=== PATIENT | female | born 1945 | race Caucasian/White ===

== ENCOUNTER 2021-02-03 13:30 | Outpatient (REF) | payer MEDICARE, SELFPAY ==
--- NOTE | ~2021-02-03 | XR_ITS ---
EXAMINATION: XR FOOT, LEFT CLINICAL INFORMATION: L03.90 - Cellulitis, unspecified COMPARISON: None TECHNIQUE: AP, lateral, and oblique views of the left foot. FINDINGS: There is mild generalized osteopenia. There is no focal bony destructive process or periostitis. No gas tracking in soft tissue planes. There is no visible acute or healing fracture or dislocation. No erosive arthropathy. There are bulky posterior and plantar calcaneal spurs. There is mild hallux valgus first MTP with medial bunion. XR/XR foot LT min 3V IMPRESSION: 1. No focal bony destructive process or periostitis. 2. No gas tracking in soft tissue planes.
== END 2021-02-03 13:31 | disposition home or self-care (01) ==
LOC: HO.HMGCX 13:30
PROVIDERS: PCP Internal Medicine; Visit Provider Nurse Practitioner Family
DX: L03.90 Cellulitis, unspecified (principal); M79.89 Other specified soft tissue disorders
CPT/HCPCS: 73630

== ENCOUNTER 2024-10-07 17:13 | Emergency (ER) | payer OTHER, SELFPAY ==
--- NOTE | 2024-10-07 | ECG_ITS ---
Test Reason : chest pain Blood Pressure : */* mmHG Vent. Rate : 64 BPM Atrial Rate : 64 BPM P-R Int : 166 ms QRS Dur : 122 ms QT Int : 476 ms P-R-T Axes : 44 -28 8 degrees QTcB Int : 491 ms Sinus rhythm with Premature atrial complexes Right bundle branch block T wave abnormality, consider lateral ischemia Abnormal ECG No previous ECGs available Referred By: Generic ED Physician Electronically Signed By: COCO AGUILERA
--- NOTE | ~2024-10-07 | US_ITS ---
CLINICAL HISTORY: RUQ pain, GB, CBD US abdomen limited Comparison: None Findings: The liver is normal in size and echotexture. There is no intrahepatic bile duct dilatation. The common duct is 2 mm in diameter. The gallbladder is normal. There is no sonographic Fulton sign. The main portal vein is antegrade. IMPRESSION: Unremarkable limited abdominal ultrasound. This document has been electronically signed by: Koko Ramirez MD on 10/07/2024 19:18:53
[2024-10-07 17:28] VITALS: BP 128/69; BP 143/77; PULSE 63; PULSE 67; RESP 14; TEMP 36.3; O2SAT 98; BMI 27.6
[2024-10-07] MEDS: 0.9 % Sodium Chloride 1,000 ML 999 ML IV (18:03)
[2024-10-07] MEDS: ondansetron HCL 4 MG/2 ML VIAL IVPUSH (18:04)
[2024-10-07] MEDS: Morphine Sulfate 4 MG/ML CARTRIDGE IVPUSH ×2 (18:04→18:39)
[2024-10-07 18:18] LABS: MANUAL DIFF FLAG NO
[2024-10-07 18:25] LABS: Basophils Percent Auto 0.4 % (0-2); Eosinophils Percent Auto 0.6 % (0-4); Hematocrit 38.4 % (37.0-47.0); Hemoglobin 13.4 g/dl (12.0-16.0); Imm Gran Abs Auto 0.04 X10*3/uL (0.00-0.03); Imm Gran Pct Auto 0.7 % (0.0-0.4); Lymphocytes Absolute Auto 2.3 X10*3/uL (1.2-4.9); Lymphocytes Percent Auto 43.8 % (20-40); Mean Corpuscular HGB Conc 34.9 g/dl (31.0-35.0); Mean Corpuscular Volume 86.1 fL (80.0-98.0); Mean Platelet Volume 9.4 fL (9.4-12.3); Monocytes Absolute Auto 0.4 X10*3/uL (0.1-1.2); Monocytes Percent Auto 7.7 % (2-11); Neutrophils Absolute Auto 2.5 x10*3/uL (2.0-8.3); Neutrophils Percent Auto 46.8 % (45-73); Platelet Count 241 X10*3/uL (160-400); Red Blood Count 4.46 X10*6/uL (4.20-5.50); Red Cell Distribution Width 13.5 % (11.0-16.0); White Blood Count 5.3 X10*3/uL (4.8-10.8)
[2024-10-07 18:37] LABS: Alanine Aminotransferase 13 U/L (0-31); Albumin Level 4.1 g/dL (3.5-5.0); Alkaline Phosphatase 55 U/L (39-117); Anion Gap 14 (12-20); Aspartate Amino Transferase 31 U/L (5-31); Bilirubin Total 0.8 mg/dL (0.0-1.0); Blood Urea Nitrogen 17 mg/dL (9-16); Calcium 9.1 mg/dL (8.4-10.2); Carbon Dioxide 27 mmol/L (22-29); Chloride 104 mmol/L (96-108); Creatinine Clr Calc Pharmacy 39.3; Estimated Glomerular Filt Rate 50; Glucose Random 104 mg/dL (60-115); Lipase 32 U/L (8-78); Magnesium 1.8 mg/dL (1.6-2.6); Potassium 3.5 mmol/L (3.3-5.1); Sodium 141 mmol/L (135-145); Total Protein 7.5 g/dL (6.5-8.0)
--- NOTE | 2024-10-07 18:40 | ED.ABDPAIN ---
HPI - Abdominal Pain General Chief Complaint: Abdominal Pain Stated Complaint: epigastric pain, nausea since Time Seen by Provider: 10/07/24 17:39 Source: patient Limitations: no limitations History of Present Illness ED Provider: Latricia Ceron PA-C HPI narrative: 79-year-old female presents with the abdominal pain x4 days. Pain over epigastric and right upper quadrant, unable to describe the nature of her discomfort, but states it is nonradiating. Pain worse after eating. Associated nausea/ vomiting. Denies fever, chest pain, cough cold symptoms or shortness of breath. Patient was seen at urgent Care, they obtained an EKG that was concerning, they sent her here for further assessment. Related Data Home Medications ?Medication ?Instructions ?Recorded ?Confirmed acetaminophen 325 mg tablet 650 mg PO Q6H PRN pain 02/03/21 atenolol 50 mg tablet 50 mg PO DAILY 02/03/21 cetirizine 10 mg capsule (Zyrtec) 10 mg PO DAILY PRN 02/03/21 chlorthalidone 25 mg tablet 25 mg PO DAILY 02/03/21 triamcinolone acetonide 0.1 % topical BEDTIME 02/03/21 topical ointment Previous Rx's ?Medication ?Instructions ?Recorded cephalexin 500 mg capsule 500 mg PO QID 7 days #28 caps 02/03/21 doxycycline monohydrate 100 mg 100 mg PO BID 7 days #14 caps 02/03/21 capsule ketoconazole 2 % topical cream 1 appl topical BID 4 weeks #60 02/03/21 grams ondansetron HCl 4 mg tablet 4 mg PO Q8H PRN nausea and 10/07/24 vomiting #10 tabs sucralfate 100 mg/mL oral 10 ml PO QID PRN indigestion #200 10/07/24 suspension (Carafate) mL Allergies Allergy/AdvReac Type Severity Reaction Status Date / Time No Known Allergies Allergy Verified 10/07/24 17:32 Review of Systems Review of Systems Yes all other systems are reviewed and are negative Constitutional: Denies fatigue and Denies fever(s) Cardiovascular: Denies chest pain and Denies dyspnea Respiratory: Denies cough and Denies dyspnea Gastrointestinal: Reports abdominal pain, Denies diarrhea, Reports nausea and Reports vomiting Endocrine: Denies fatigue PMFSH Past Medical History Attestation statement: The following information was validated with the patient. Social History Social History Smoked in Last 30 Days: No Advance Directives: No Advance Directives Information Provided: No Do you have a plan to hurt others: No Plan Physical Exam ED Vital Signs: Vital Signs - 24 hr 10/07/24 17:28 10/07/24 18:45 Temperature 97.3 F 97.3 F Pulse Rate 63 63 Respiratory Rate 14 14 Blood Pressure 128/69 128/69 Pulse Oximetry 98 98 Oxygen Delivery Method Room Air Room Air BMI result Body Mass Index 27.6 Const Other: Alert Orientation/consciousness: patient oriented x3 Resp Effort & Inspection: normal respiratory effort Cardio Other: Normal peripheral perfusion GI Other: Abdomen is soft, nondistended, mild to moderate tenderness epigastric and right upper quadrant without guarding Skin Other: Warm dry no rash Neuro General: patient oriented x3, gait normal, no focal motor deficits and CN's II-XI intact bilaterally Psych Other: Cooperative Medical Decision Making Medical Decision Making MDM Narrative: 79-year-old female presents with the abdominal pain x4 days. Pain over epigastric and right upper quadrant, unable to describe the nature of her discomfort, but states it is nonradiating. Pain worse after eating. Associated nausea/ vomiting. Denies fever, chest pain, cough cold symptoms or shortness of breath. Patient was seen at urgent Care, they obtained an EKG that was concerning, they sent her here for further assessment. Problem age History: Per patient I have considered the following differential diagnoses: Biliary colic, cholecystitis, gastritis, pancreatitis, atypical presentation for ACS Plan: Patient has no known risk factors for coronary artery disease, per our EKG, there are no acute changes, however urgent Care did not have prior studies to compare to. Along with a her screening labs, a troponin was ordered. Given distribution of discomfort I am considering biliary versus gastric versus pancreatic etiology as cause for her symptoms. Given postprandial symptoms, most likely biliary versus gastric. We will be obtaining an ultrasound of right upper quadrant, giving fluid, Zofran and morphine for her discomfort. I have independently reviewed the following tests: Labs: No leukocytosis, not anemic, no electrolyte abnormality noted, troponin 3.7, LFTs normal EKG: Sinus rhythm rate of 64, PACs noted, right bundle branch block again noted, T-wave abnormalities lateral leads are not new, QTC 491 Ultrasound right upper quadrant:Findings: The liver is normal in size and echotexture. There is no intrahepatic bile duct dilatation. The common duct is 2 mm in diameter. The gallbladder is normal. There is no sonographic Fulton sign. The main portal vein is antegrade. IMPRESSION: Unremarkable limited abdominal ultrasound. Lab Data 10/07/24 18:10 10/07/24 18:10 Labs: Lab Results 10/07/24 Range/Units 18:10 WBC 5.3 (4.8-10.8) X10*3/uL RBC 4.46 (4.20-5.50) X10*6/uL Hgb 13.4 (12.0-16.0) g/dl Hct 38.4 (37.0-47.0) % MCV 86.1 (80.0-98.0) fL MCH 30.0 (27.0-33.0) pg MCHC 34.9 (31.0-35.0) g/dl RDW 13.5 (11.0-16.0) % Plt Count 241 (160-400) X10*3/uL MPV 9.4 (9.4-12.3) fL Immature Gran % (Auto) 0.7 H (0.0-0.4) % Neut % (Auto) 46.8 (45-73) % Lymph % (Auto) 43.8 H (20-40) % [place] % (Auto) 7.7 (2-11) % Eos % (Auto) 0.6 (0-4) % Baso % (Auto) 0.4 (0-2) % Lymph # (Auto) 2.3 (1.2-4.9) X10*3/uL [place] # (Auto) 0.4 (0.1-1.2) X10*3/uL Eos # (Auto) 0.0 (0.0-0.4) X10*3/uL Baso # (Auto) 0.0 (0.0-0.2) X10*3/uL Abs Immat Gran (auto) 0.04 H (0.00-0.03) X10*3/uL Absolute Neuts (auto) 2.5 (2.0-8.3) x10*3/uL Absolute Nucleated RBC 0.000 (0.0-0.012) X10*3/uL Nucleated RBC % (auto) 0.0 (0.0-0.2) /100WBC Sodium 141 (135-145) mmol/L Potassium 3.5 (3.3-5.1) mmol/L Chloride 104 (96-108) mmol/L Carbon Dioxide 27 (22-29) mmol/L Anion Gap 14 (12-20) BUN 17 H (9-16) mg/dL Creatinine 1.07 (0.5-1.4) mg/dL Estim Creat Clear Calc 39.3 Estimated GFR 50 Random Glucose 104 (60-115) mg/dL Calcium 9.1 (8.4-10.2) mg/dL Magnesium 1.8 (1.6-2.6) mg/dL Total Bilirubin 0.8 (0.0-1.0) mg/dL AST 31 (5-31) U/L ALT 13 (0-31) U/L Alkaline Phosphatase 55 (39-117) U/L Troponin I High Sens 3.7 (<3.5-17.0) ng/L Total Protein 7.5 (6.5-8.0) g/dL Albumin 4.1 (3.5-5.0) g/dL Lipase 32 (8-78) U/L Medications Administered Discontinued Medications Generic Name Dose Route Start Last Admin Trade Name Freq PRN Reason Stop Dose Admin Sodium Chloride 1,000 mls @ 999 mls/hr 10/07/24 18:00 10/07/24 18:03 Ns IV 10/07/24 19:00 999 mls/hr .Q1H1M RAKAN Administration Morphine Sulfate 4 mg 10/07/24 17:51 10/07/24 18:04 Morphine Sulfate 4 Mg/Ml Cartridge IVPUSH 10/07/24 17:52 4 mg ONCE ONE Administration Protocol Morphine Sulfate 4 mg 10/07/24 18:27 10/07/24 18:39 Morphine Sulfate 4 Mg/Ml Cartridge IVPUSH 10/07/24 18:28 4 mg ONCE ONE Administration Protocol Ondansetron HCl 4 mg 10/07/24 17:51 10/07/24 18:04 Ondansetron Hcl 4 Mg/2 Ml Vial IVPUSH 10/07/24 17:52 4 mg ONCE ONE Administration Discharge Plan Discharge Clinical Impression: Gastritis Patient Disposition: Home, Self-Care Instructions: Gastritis (ED), Diet for Stomach Ulcers and Gastritis (ED), Gastroesophageal Reflux Disease (ED) Additional Instructions: All of your screening labs and the ultrasound of your abdomen were normal. Your symptoms are likely due to viral gastritis and/or poorly controlled acid reflux. See home care instructions. Some common food triggers, that could be worsening your symptoms, are spicy food, acidic food, greasy/ fatty food, mint, anything carbonated, alcohol. Eating smaller meals throughout the day can also help deter symptoms. Do not eat 3 hours before bed. Uses Zofran as needed for nausea. Use the Carafate as needed for upper abdominal discomfort, this medication helps to coat your stomach. Follow up with your primary care provider as needed. Prescriptions: New sucralfate [Carafate] 100 mg/mL suspension 10 ml PO QID PRN (Reason: indigestion) Qty: 200 0RF Rx Instructions: swish in mouth and swallow; use after food/drink ondansetron HCl 4 mg tablet 4 mg PO Q8H PRN (Reason: nausea and vomiting) Qty: 10 0RF No Action cephalexin 500 mg capsule 500 mg PO QID 7 Days Qty: 28 0RF doxycycline monohydrate 100 mg capsule 100 mg PO BID 7 Days Qty: 14 0RF ketoconazole 2 % cream 1 appl topical BID 28 Days Qty: 60 0RF Print Language: Citizen Of [place]
--- NOTE | 2024-10-07 18:43 | PC.NURSE ---
Pt medicated for pain and nausea; pt's pain initially went down from 10/10 to 4/10, but pain returned to 8/10 after upper abdominal U/S performed bedside; [employer] ATTENDANT made aware; pt medicated per orders; vss; family at bedside; nausea resolved, per pt
[2024-10-07 18:45] VITALS: BP 128/69; PULSE 63; RESP 14; TEMP 36.3; O2SAT 98
[2024-10-07 18:45] LABS: Troponin-I High Sensitivity 3.7 ng/L (<3.5-17.0)
--- OUTSIDE RECORDS SUMMARY | 2024-10-07 19:04 | XMS_ITS | Encounter Summary ---
Author Organization [facility] Address [address] [place] [address] Care Team Providers Care Business Services Specialist Sales Name Role Phone Bibiana Borges MD Primary Care Provider Unavail able Tiffany Zayas MD Primary Care Provider Alma Delia Segura MD Primary Care Prov ider Felecia Thompson MD Unavailable [phone] Jordy Valdez MD Unavailable Unavailab Finesse Smallwood PA-C Unavailable [phone] Javier Patel MD Unavailable [phone] Reason for Visit * Reason Onset Date Comments REFERRAL 07/18/2017 colonoscopy Encounter Details Date Type Department Care Team Description 07/18/2017 Telephone Gastroenterology - [address] [address] Osito Townsend MD REFERRAL (colonoscopy) Social History Tobacco Use Types Packs/Day Years Used Date Smoking Tobacco: Never Smokeless Tobacco: Never Alcohol Use Standard Drinks/Week Comments Yes 0 (1 standard drink = 0.6 oz pur e alcohol) occ Sex Assigned at Date Recorded Not on file Job Start Date Occupation Industry Not on file Not on file Not on file documented as of this encounter Miscellaneous Notes * Telephone Encounter - Helen Recio - 07/19/2017 10:19 AM EST Message left for patient to call us back to schedule colonoscopy. Patient is stateless speaking only. * Telephone Encounter - Osito Townsend MD - 07/18/2017 4:53 PM EST Chart reviewed, ok for colonoscopy here. * Telephone Encounter - Helen Recio - 07/18/2017 4:09 PM EST Please review problem list and let us know if we should proceed with booking colonoscopy. Thank you! documented in this encounter Plan of Treatment Not on file documented as of this encounter Visit Diagnoses Not on filedocumented in this encounter Care Teams Business Services Specialist Sales Relationship Specialty Start Date End Date Bibiana Borges MD PCP - General Internal Medicine 03/02/17 06/24/21 Tiffany Zayas MD [address] [place] [address] PCP - General Internal Medicine 06/25/21 03/27/22 Alma Delia Segura MD [address] [place] [address] PCP - General Internal Medicine 03/28/22 Felecia Thompson MD [address] [place] [address] Specialist Obstetrics/Gynecology 05/04/23 Jordy Valdez MD [address] [place] [address] Specialist Nephrology 05/04/23 Finesse Resendiz PA-Dulce [address] [place] [address] Specialist ORTHOPEDICS 05/04/23 Javier Patel MD [address] [place] [address] [place] [address] Specialist Cardiovascular Disease 07/11/23 documented as of this encounter
--- OUTSIDE RECORDS SUMMARY | 2024-10-07 19:04 | XMS_ITS | Encounter Summary ---
Author Organization [facility] Address [address] [place] [address] Care Team Providers Care Atomic Physics Teacher Name Role Phone Bibiana Borges MD Primary Care Provider Unavail able Tiffany Zayas MD Primary Care Provider Alma Delia Segura MD Primary Care Prov ider Felecia Thompson MD Unavailable [phone] Jordy Valdez MD Unavailable Unavailab Finesse Smallwood PA-C Unavailable [phone] Javier Patel MD Unavailable [phone] Encounter Details Date Type Department Care Team Description 10/08/2020 Orders Only Adult Medicine [address] [address] Zunilda Walker PA-C Social History Tobacco Use Types Packs/Day Years Used Date Smoking Tobacco: Never Smokeless Tobacco: Never Alcohol Use Standard Drinks/Week Comments Yes 0 (1 standard drink = 0.6 oz pur e alcohol) occ Sex Assigned at Date Recorded Not on file Job Start Date Occupation Industry Not on file Not on file Not on file COVID-19 Exposure Response Date Recorded In the last month, have you been in contact with someone who was confirmed or suspected to have Coronavirus / COVID-19? Unable to assess 10/08/2020 9:07 AM EST documented as of this encounter Plan of Treatment Not on file documented as of this encounter Visit Diagnoses Not on filedocumented in this encounter Care Teams Atomic Physics Teacher Relationship Specialty Start Date End Date Bibiana Borges MD PCP - General Internal Medicine 03/02/17 06/24/21 Tiffany Zayas MD [address] [place] [address] PCP - General Internal Medicine 06/25/21 03/27/22 Alma Delia Segura MD [address] [place] [address] PCP - General Internal Medicine 03/28/22 Felecia Thompson MD [address] [place] [address] Specialist Obstetrics/Gynecology 05/04/23 Jordy Valdez MD [address] [place] [address] Specialist Nephrology 05/04/23 Finesse Resendiz, PA-C [address] [place] [address] Specialist ORTHOPEDICS 05/04/23 Javier Patel MD [address] [place] [address] [place] [address] Specialist Cardiovascular Disease 07/11/23 documented as of this encounter
--- OUTSIDE RECORDS SUMMARY | 2024-10-07 19:05 | XMS_ITS | Encounter Summary ---
Author Organization [facility] Address [address] [place] [address] Care Team Providers Care Business Integration Manager Name Role Phone Bibiana Borges MD Primary Care Provider Unavail able Tiffany Zayas MD Primary Care Provider Alma Delia Segura MD Primary Care Prov ider Felecia Thompson MD Unavailable [phone] Jordy Valdez MD Unavailable Unavailab Finesse Smallwood PA-C Unavailable [phone] Javier Patel MD Unavailable [phone] Encounter Details Date Type Department Care Team Description 09/29/2017 Business Doc Medical Records [address] [place] [address] Abstract, Provider Social History Tobacco Use Types Packs/Day Years Used Date Smoking Tobacco: Never Smokeless Tobacco: Never Alcohol Use Standard Drinks/Week Comments No 0 (1 standard drink = 0.6 oz pur e alcohol) occ Sex Assigned at Date Recorded Not on file Job Start Date Occupation Industry Not on file Not on file Not on file documented as of this encounter Plan of Treatment Not on file documented as of this encounter Visit Diagnoses Not on filedocumented in this encounter Care Teams Business Integration Manager Relationship Specialty Start Date End Date Bibiana Borges MD PCP - General Internal Medicine 03/02/17 06/24/21 Tiffany Zayas MD [address] [place] [address] PCP - General Internal Medicine 06/25/21 03/27/22 Alma Delia Segura MD [address] [place] [address] PCP - General Internal Medicine 03/28/22 Felecia Thompson MD [address] [place] [address] Specialist Obstetrics/Gynecology 05/04/23 Jordy Valdez MD [address] [place] [address] Specialist Nephrology 05/04/23 Finesse Resendiz, PA-C [address] [place] [address] [id number] Specialist ORTHOPEDICS 05/04/23 Javier Patel MD [address] [place] [address] [place] [address] Specialist Cardiovascular Disease 07/11/23 documented as of this encounter
--- OUTSIDE RECORDS SUMMARY | 2024-10-07 19:05 | XMS_ITS | Encounter Summary ---
Author Organization [facility] Address [address] [place] [address] Care Team Providers Care National Opelint Analyst Name Role Phone Bibiana Borges MD Primary Care Provider Unavail able Tiffany Zayas MD Primary Care Provider [phone] Alma Delia Segura MD Primary Care Prov ider Felecia Thompson MD Unavailable [phone] Jordy Valdez MD Unavailable Unavailab Finesse Smallwood PA-C Unavailable [phone] Javier Patel MD Unavailable [phone] Encounter Details Date Type Department Care Team Description 05/13/2018 Hospital Medical Records [address] [place] [address] Abstract, Provider Social History Tobacco Use Types Packs/Day Years Used Date Smoking Tobacco: Never Smokeless Tobacco: Never Alcohol Use Standard Drinks/Week Comments Not Currently 0 (1 standard drink = 0.6 oz pur e alcohol) Sex Assigned at Date Recorded Not on file Job Start Date Occupation Industry Not on file Not on file Not on file documented as of this encounter Plan of Treatment Not on file documented as of this encounter Visit Diagnoses Not on filedocumented in this encounter Care Teams National Opelint Analyst Relationship Specialty Start Date End Date Bibiana Borges MD PCP - General Internal Medicine 03/02/17 06/24/21 Tiffany Zayas MD [address] [place] [address] PCP - General Internal Medicine 06/25/21 03/27/22 Alma Delia Segura MD [address] [place] [address] PCP - General Internal Medicine 03/28/22 Felecia Thompson MD [address] [place] [address] Specialist Obstetrics/Gynecology 05/04/23 Jordy Valdez MD [address] [place] [address] Specialist Nephrology 05/04/23 Finesse Resendiz, PA-C [address] [place] [address] Specialist ORTHOPEDICS 05/04/23 Javier Patel MD [address] [place] [address] [place] [address] Specialist Cardiovascular Disease 07/11/23 documented as of this encounter
--- OUTSIDE RECORDS SUMMARY | 2024-10-07 19:05 | XMS_ITS | Clinical Summary ---
Author Organization [facility], Address [address] [place] [address] [place] [address] Phone Care Team Providers Care Pump Installation And Servicer Name Role Phone Bibiana Stover MD Primary Care Provider [phone] Allergies Active Allergy Reactions Criticality Noted Date Comments Other 10/11/2017 Medications triamcinolone acetonide (KENALOG-40) 40 MG/ML injection Inject 40 mg into the joint 11/12/2020 Active Multiple Vitamin (Multi-Vitamin) tablet Take by mouth Active ipratropium-albu terol (COMBIVENT RESPIMAT) 20-100 MCG/ACT inhaler Inhale 1 puff 08/14/2018 Active chlorthalidone 25 MG tablet Take 25 mg by mouth 09/04/2020 Active cetirizine (ZyrTEC) 10 MG tablet Take 10 mg by mouth 11/12/2019 Active atenolol (TENORMIN) 50 MG tablet Take 50 mg by mouth 09/11/2018 Active albuterol (5 MG/ML) 0.5% nebulizer solution Inhale Active acetaminophen (TYLENOL) 325 MG tablet Take 650 mg by mouth 09/04/2020 Active ergocalciferol 1.25 MG (61378 UT) capsule Take 50,000 Units by mouth 07/02/2021 Active amLODIPine (NORVASC) 5 MG tablet Take 1 tablet by mouth at bed time 09/16/2022 Active atorvastatin (LIPITOR) 20 MG tablet Take 1 tablet by mouth at bed time 07/13/2022 Active Active Problems Problem Noted Date Diagnosed Date Diastolic dysfunction 08/20/2021 Left ventricular hypertrophy 08/20/2021 Lichen sclerosus 04/14/2020 Overview (02/21/2022): Last Assessment & Plan: Reviewed findings with patient. I reviewed the importance of regular maintenance topical steroid use to prevent symptoms, further scarring, and squamous cell cancer of the vulva. I also explained the importance of regular follow up to ensure she has no evidence of precancerous or cancerous changes and that she is not having side effects from her medication. I reviewed areas of application and amount of medication to use. She will restart MWF triamcinolone ointment. Osteopenia 12/28/2018 Overview (04/25/2021): Bone density test from November 2018 Hypertensive disorder 05/02/2017 Overview (04/25/2021): Est cardiac risk 17.5 % Hypercholesterolemia 05/02/2017 Resolved Problems Problem Noted Date Diagnosed Date Resolved Date Chronic kidney disease stage 3 07/13/2017 09/27/2021 Immunizations Name Administration Dates Next Due Influenza Split High Dose Preservative Free IM 1 08/31/2020,04/23/2018 Pfizer SARS-COV-2 12/24/2020,12/03/2020 Pneumococcal Polysaccharide 08/30/2017 Td 04/23/2018,08/30/2017 Social History Tobacco Use Types Packs/Day Years Used Date Smoking Tobacco: Never Smokeless Tobacco: Never Comments Unknown Sex and Gender Information Value Date Recorded Sex Assigned at Not on file Legal Sex Female 2:17 PM EDT Gender Identity Not on file Sexual Orientation Not on file Last Filed Vital Signs Vital Sign Reading Time Taken Comments Blood Pressure 136/74 09/27/2021 8:46 AM EST Pulse - - Temperature - - Respiratory Rate - - Oxygen Saturation - - Inhaled Oxygen Concentration - - Weight - - Height - - Body Mass Index - - Plan of Treatment Upcoming Encounters Date Type Department Care Team (Late st Contact Info) Description 12/18/2024 4:10 PM EDT Office Visit [facility], [address] [place] [address] Jordy Valdez MD [address] [place] [address] Health Maintenance Due Date Last Done Comments Pneumococcal Vaccine: 65+ Years (2 of 2 - PCV) 08/30/2018 08/30/2017 Influenza Vaccine (#1) 2024 3, 04/15/2022, 06/30/2021, Additional history exists Hepatitis B Vaccine Aged Out No longe r eligible based on patient's age to complete this topic Insurance [facility] ONE CARE DUAL SNP ([id number]) [place] [id number] Care Teams Pump Installation And Servicer Relationship Specialty Start Date End Date Bibiana Stover MD [address] [place] [address] PCP - General Internal Medicine 01/20/21
--- OUTSIDE RECORDS SUMMARY | 2024-10-07 19:05 | XMS_ITS | Encounter Summary ---
Author Organization [facility] Address [address] [place] [address] Care Team Providers Care Bpm Analyst Name Role Phone Bibiana Borges MD Primary Care Provider Unavail able Tiffany Zayas MD Primary Care Provider Alma Delia Segura MD Primary Care Prov ider Felecia Thompson MD Unavailable [phone] Jordy Valdez MD Unavailable Unavailab Finesse Smallwood PA-C Unavailable [phone] Javier Patel MD Unavailable [phone] Reason for Visit * Reason Onset Date Comments refill request 12/10/2018 Encounter Details Date Type Department Care Team Description 12/10/2018 Refill Adult Medicine [address] [address] Bibiana Borges MD refill request Social History Tobacco Use Types Packs/Day Years [...] encounter Miscellaneous Notes * Telephone Encounter - Unique Brown M.A. - 12/11/2018 7:45 AM EDT Lab Results Component Value Date NA 140 11/07/2018 K 4.2 11/07/2018 CO2 30 11/07/2018 CL 103 11/07/2018 BUN 14 11/07/2018 CREAT 1.17 11/07/2018 GLU 98 11/07/2018 CA 9.2 11/07/2018 GFR 45 11/07/2018 * Telephone Encounter - Rosina Brownlee - 12/10/2018 3:49 PM EDT Patient would like script to be: E-PRESCRIBED/FAXED TO PHARMACY WHEN WAS THE PATIENT'S LAST APPOINTMENT IN ADULT MEDICINE? 11/29/2018 WHEN WAS THE LAST TIME THE PATIENT SAW THEIR PCP? 05/18/2018 Does patient have an upcoming appointment? No-patient refused appointment, will call back to book appointment (THE MEDICATION REQUESTED IS ON THE MED LIST ABOVE) All of the medications requested were on the CURRENT MEDS list Did you check the Pharmacy information above?: YES Patient wants: 90 -day supply Is this a mail order prescription request ? NO If the refill is from a FAXED refill request what is the RX # listed on the fax? N/A Patients current insurance carrier is: [place] / [place] / Product Type: MEDICARE [id number] documented in this encounter Plan of Treatment Not on file documented as of this encounter Visit Diagnoses Not on filedocumented in this encounter Care Teams Bpm Analyst Relationship Specialty Start Date End Date Bibiana Borges MD PCP - General Internal Medicine 03/02/17 06/24/21 Tiffany Zayas MD [address] [place] [address] PCP - General Internal Medicine 06/25/21 03/27/22 Alma Delia Segura MD [address] [place] [address] PCP - General Internal Medicine 03/28/22 Felecia Thompson MD [address] [place] [address] Specialist Obstetrics/Gynecology 05/04/23 Jordy Valdez MD [address] [place] [address] Specialist Nephrology 05/04/23 Finesse Resendiz, PA-C [address] [place] [address] Specialist ORTHOPEDICS 05/04/23 Javier Patel MD [address] [place] [address] [place] [address] Specialist Cardiovascular Disease 07/11/23 documented as of this encounter
--- OUTSIDE RECORDS SUMMARY | 2024-10-07 19:05 | XMS_ITS ---
Author Organization [facility] Address [address] [place] [address] Care Team Providers Care Matrix Bath Operator Name Role Phone Alma Delia Hayward Primary Care Provider Kaye Medellin Unavailable [phone] Allergies No Known Allergies REASON FOR VISIT Open sore - Toe Medications Medication SIG (Take, Route, Frequency, Duration) Notes Start Date End Date Status ZyrTEC 10 MG 1 tablet Orally Once a day Active Chlorthalidone 25 MG 1 tablet in the mor zoey with food Orally Active Atenolol 50 MG 1 tablet Orally Once a day Active amLODIPine Besylate 2.5 MG 1 tablet Oral ly Once a day Active Tylenol Extra Strength 500 MG 1 tablet as needed Orally every 6 hrs 06/12/2024 Active Vitamin D3 50 MCG (1999 UT) 1 capsule Or ally Once a day Active Social History Tobacco Use: Social History Observation Description Date Details (start date - stop date) Former Smoker NA - NA Tobacco use other than smoking: Question Answer Notes Are you an other tobacco user? No Tobacco Control (Standard) Question Answer Notes Tobacco use: Former smoker AUDIT-C (Standard) Question Answer Notes Did you have a drink contain ing alcohol in the past year? Yes How often did you have six o r more drinks on one occasion in the past year? Declined to specify (0 point) How many drinks did you have on a typical day when you were drinking in the past year? Declined to specify (0 point) How often did you have a dri nk containing alcohol in the past year? Declined to specify (0 point) Points 0 Interpretation Negative Problems Problem Type SNOMED Code ICD Code Onset Dates Problem Status W/U Status Risk Notes Problem Skin ulcer of toe of left foot with fat layer exposed (L97.522) Active confirmed Problem Skin ulcer of toe of right foot with fat layer exposed (L97.512) Active confirmed Vital Signs Height 5 ft 4 in in 06/26/2024 Weight 154 lbs 06/26/2024 BMI 26.43 kg/m2 06/26/2024 Procedures Procedure Date Ordered Date Performed Result Body Sit e 30003-IUFGTDE SKIN/TISSUE 06/26/2024 N/A Encounters Encounter Location Date Provider Diagnosis [facility] [address] [place] [address] 06/26/2024 Kaye Colon Skin ulcer of toe of left foot with fat layer exposed L97.522 ; Tinea unguium B35.1 and Toe pain, left M79.675 Assessments Encounter Date Diagnosis (ICD Code) Assessment Notes Treatment Notes Treatment Clinical Notes Section Notes 06/26/2024 Skin ulcer of toe of left foot with fat layer exposed (ICD-10 - L97.522) Patient Educated with: WOUND CARE INSTRUCTIONS.p df (WOUND CARE INSTRUCTIONS.p df) 06/26/2024 Tinea unguium (ICD-10 - B35.1) 06/26/2024 Toe pain, left (ICD-10 - M79.675) 06/26/2024 Other Patient Educated with: WOUND CARE INSTRUCTIONS.p df (WOUND CARE INSTRUCTIONS.p df) Plan Of Treatment Treatment Notes Assessment Notes Skin ulcer of toe of left fo ot with fat layer exposed Patient Educated with: WOUND CARE INSTRUCTIONS.pdf (WOUND CARE INSTRUCTIONS.pdf) Other Patient Educated wit h: WOUND CARE INSTRUCTIONS.pdf (WOUND CARE INSTRUCTIONS.pdf) Pending Test Test Name Order Date [id number] SKIN/TISSUE 06/26/2024 Next Appt Details Follow Up: prn, Reason: Progress Notes * Jay OSMANPedritoOB:1945 (79 yo F)Acc No.[id number]:06/26/2024 Progress Notes Patient:?Haja OSMAN Provider:?Kaye Colon DPM :1945???Age:79 Y???Sex:Female D ate:06/26/2024 Address:[address] [place], [place] [address] , [id number] Pcp:Alma Delia Hayward Subjective: * Chief Complaints: * ???Open sore - Toe * HPI: ???Skin problems:?Nature:?Open sore.?Treatments:?Topical abx, soaks.? * ROS:?General/Constitutional:?Nausea?denies.?Vomiting?denies.?Hunger Thirst?denies.?Loss appetite?denies.?Chills?denies.?Fatigue?denies.?Fever?denies.?Night Sweats?denies.?Unexplained weight loss?denies.?Unexplained weight gain?denies.?HEENTM:?Dentures?admits.?Dizziness?denies.?Glasses/contacts?admits.?Retinopathy?de nies.?Blurred/double vision?denies.?TMJ?denies.?Discharge/drainage?denies.?Implants?denies.?Sore throat?denies.?Dental implants?denies.?Hard of hearing ?denies.?Difficulty chewing/swallowing/speaking?denies.?Nose bleeds?denies.?Sore mouth?denies.?Respiratory:?On Oxygen?denies.?Pneumonia/pleurisy?denies.?Bronchitis?denies.?Emphysema?denies.?C oughing?denies.?Cough blood?denies.?Shortness of breath?denies.?Wheezing?denies.?Cardiovascular:?Pacemaker?denies.?MVP?denies.?WPW?denies.?CHF?denies.?Heart attack?denies.?Septal defect?denies.?Rapid beat?denies.?Chest pain ?denies.?Atrial Fib.?denies.?Murmur/Palpitations?denies.?Gastrointestinal:?Hemorrhoids?denies.?Stomach/Abdominal pain?denies.?Dark blood stool?denies.?Irritable bowel ?denies.?Constipation?denies.?Diarrhea?denies.?Hematology:?Swelling?denies.?Clots?denies.?Varicose Veins?denies.?Bruising?denies.?Bleeding problem?denies.?Genitourinary:?Blood urine?denies.?Frequent/Painfu/urination/bladder control?denies.?Kidney stones?denies.?Infection (UTI)?denies.?Nephropathy?denies.?sex trans dis (STD)?denies.?Prostate?denies.?Musculoskeletal:?Hammertoes?denies.?Bunions?denies.?Back Pain?denies.?Muscle Cramps/ Resting?denies.?Muscle cramps / walking?denies.?Generalized aches and pains?denies.?Weakness?denies.?Integ.:?Galan?denies.?Scars?denies.?Corns/calluses?denies.?Ingrown nails?denies.?Painful nails?denies.?Open Sores?denies.?Rashes?denies.?Neurologic:?Difficulty sleeping?denies.?Brain disorder?denies.?Numbness?denies.?Balance trouble?denies.?Confusion?denies.?Fainting/blackouts?denies.?Tingling?denies.?Tr emors?denies.? * Medical History:? * Surgical History:?shoulder s urgery 2021rotator cuff 1999 * Hospitalization/Major Diagno stic Procedure:?Denies Past Hospitalization * Family History:?Mother: dece ased.?Father: .? * Social History:?Tobacco Use:?Tobacco use other than smoking?Are you an other tobacco user??No ?Tobacco Control (Standard)?Tobacco use:?Former smoker ???Drugs/Alcohol:?Drugs?Have you used drugs other than those for medical reasons in the past 12 months??No ???Miscellaneous:?Caffeine: yes, frequency:. ?Children: yes, 4. ?Exercise: no. ?Marital status: . ?Occupation: Retired. ???Drug/Alcohol:?AUDIT-C (Standard)?Did you have a drink containing alcohol in the past year??Yes ?How often did you have six or more drinks on one occasion in the past year??Declined to specify (0 point) ?How many drinks did you have on a typical day when you were drinking in the past year??Declined to specify (0 point) ?How often did you have a drink containing alcohol in the past year??Declined to specify (0 point) ?Points?0 ?Interpretation?Negative * Medications:?TakingVitamin D 3 50 MCG (1999 UT) Capsule 1 capsule Orally Once a day ZyrTEC 10 MG Tablet Chewable 1 tablet Orally Once a day Chlorthalidone 25 MG Tablet 1 tablet in the morning with food Orally Atenolol 50 MG Tablet 1 tablet Orally Once a day amLODIPine Besylate 2.5 MG Tablet 1 tablet Orally Once a day Tylenol Extra Strength 500 MG Tablet 1 tablet as needed Orally every 6 hrs Medication List reviewed and reconciled with the patientTaking Vitamin D3 50 MCG (2000 UT) Capsule 1 capsule Orally Once a day Taking ZyrTEC 10 MG Tablet Chewable 1 tablet Orally Once a day Taking Chlorthalidone 25 MG Tablet 1 tablet in the morning with food Orally Taking Atenolol 50 MG Tablet 1 tablet Orally Once a day Taking amLODIPine Besylate 2.5 MG Tablet 1 tablet Orally Once a day Taking Tylenol Extra Strength 500 MG Tablet 1 tablet as needed Orally every 6 hrs Medication List reviewed and reconciled with the patient * Allergies:?N.K.D.A.yes[Aller gies Verified] Objective: * Vitals:?Ht: 5 ft 4 in, Wt:15 4, BMI: 26.43, Shoe size:8, Ht-cm: 162.56 cm, Wt-k.85 kg. * Examination: ???Dermatologic: ?ULCER:?LOCATION, Dorsal, TA has completely epithelialized,? no surrounding erythema or edema appreciated.? Assessment: * Assessment: 1.?Tinea unguium - B35.1???S pecify :LEFT???2.?Skin ulcer of toe of left foot with fat layer exposed - L97.522 (Primary)???Specify :Resolved???3.?Toe pain, left - M79.675??? Plan: * Treatment: 2.?Others? Notes: Patient Educated with: WOUND CARE INSTRUCTIONS.pdf (WOUND CARE INSTRUCTIONS.pdf)?? * Procedure Codes:? * Preventive Medicine:? ??Counseling:?Discussion:?-12: Office or other outpatient visit for the evaluation and management of an established patient, which required a medically appropriate history and/or examination and STRAIGHTFORWARD level of MEDICAL DECISION MAKING, 1 SELF-LIMITED OR MINOR PROBLEM, MINIMAL- NO AMOUNT/COMPLEXITY OF DATA TO BE REVIEWED/ANALYZED, AND MINIMAL RISK OF COMPLICATION/MORBIDITY. The visit on the day of the encounter encompassed interpreting the data and educating the patient as to the nature of their condition, treatment options available according to their individual PMH, meds, allergies, and overall health/living conditions, as well as any potential risks or complications that may occur from a failure to adhere to, and participate in, the recommended course of therapy. The discussion included a complete verbal, and/or written explanation of the examination results, any x-rays taken, the proposed diagnosis, and outline of the treatment plan. A schedule for future care needs was also explained. The patient verbalized an understanding of the instructions at this time and agreed to be an active participant in their treatment. If the patient should think of any questions or concerns after the visit, I have encouraged the patient to call the office, Given recent successful results to treatment, The patient wishes to continue with the present treatment plan for their condition.? * Follow Up:?prn * Images: * Sign off status: Completed true * Provider:?Kaye Colon DPM Date:?08/26/2023 Generated for Johny yang/Paul/Len on:?10/07/2024 07:04 PM EDT History and Physical Notes * HPI (History of Present Illness) Category Sub-Category Detail Notes Category Not es Skin problems Nature: Open sore Treatments: Topical abx, soaks Examination Category Sub-Category Detail Notes Category Not es Dermatologic ULCER: LOCATION, Dorsal , TA has completely epithelialized, no surrounding erythema or edema appreciated
--- OUTSIDE RECORDS SUMMARY | 2024-10-07 19:05 | XMS_ITS | Encounter Summary ---
Author Organization [facility] Address [address] [place] [address] Care Team Providers Care Tire Finisher Name Role Phone Bibiana Borges MD Primary Care Provider Unavail able Tiffany Zayas MD Primary Care Provider Alma Delia Segura MD Primary Care Prov ider Felecia Thompson MD Unavailable [phone] Jordy Valdez MD Unavailable Unavailab Finesse Smallwood PA-C Unavailable [phone] Javier Patel MD Unavailable [phone] Encounter Details Date Type Department Care Team Description 05/13/2018 [facility] Report Medical Records [address] [place] [address] Abstract, Provider Social History Tobacco Use Types [...] on filedocumented in this encounter Care Teams Tire Finisher Relationship Specialty Start Date End Date Bibiana Borges MD PCP - General Internal Medicine 03/02/17 06/24/21 Tiffany Zayas MD [address] [place] [address] PCP - General Internal Medicine 06/25/21 03/27/22 Alma Delia Segura MD [address] [place] [address] PCP - General Internal Medicine 03/28/22 Felecia Thompson MD [address] [place] [address] Specialist Obstetrics/Gynecology 05/04/23 Jordy Valdez MD [address] [place] [address] Specialist Nephrology 05/04/23 Finesse Resendiz, PA-C [address] [place] [address] [id number] Specialist ORTHOPEDICS 05/04/23 Javier Patel MD [address] [place] [address] [place] [address] Specialist Cardiovascular Disease 07/11/23 documented as of this encounter
--- OUTSIDE RECORDS SUMMARY | 2024-10-07 19:05 | XMS_ITS | Encounter Summary ---
Author Organization [facility] Address [address] [place] [address] Care Team Providers Care Web Content & Social Media Manager Name Role Phone Bibiana Borges MD Primary Care Provider Unavail able Tiffany Zayas MD Primary Care Provider Alma Delia Segura MD Primary Care Prov ider Felecia Thompson MD Unavailable [phone] Jordy Valdez MD Unavailable Unavailab Finesse Smallwood PA-C Unavailable [phone] Javier Patel MD Unavailable [phone] Encounter Details Date Type Department Care Team Description 05/22/2018 Release of Information Medical Records [address] [place] [address] Abstract, Provider Social History Tobacco Use Types [...] on filedocumented in this encounter Care Teams Web Content & Social Media Manager Relationship Specialty Start Date End Date Bibiana Borges MD PCP - General Internal Medicine 03/02/17 06/24/21 Tiffany Zayas MD [address] [place] [address] PCP - General Internal Medicine 06/25/21 03/27/22 Alma Delia Segura MD [address] [place] [address] PCP - General Internal Medicine 03/28/22 Felecia Thompson MD [address] [place] [address] Specialist Obstetrics/Gynecology 05/04/23 Jordy Valdez MD [address] [place] [address] Specialist Nephrology 05/04/23 Finesse Resendiz, PA-C [address] [place] [address] Specialist ORTHOPEDICS 05/04/23 Javier Patel MD [address] [place] [address] [place] [address] Specialist Cardiovascular Disease 07/11/23 documented as of this encounter
--- OUTSIDE RECORDS SUMMARY | 2024-10-07 19:05 | XMS_ITS | Encounter Summary ---
Author Organization [facility] Address [address] [place] [address] Care Team Providers Care Fisheries Specialist Name Role Phone Bibiana Borges MD Primary Care Provider Unavail able Tiffany Zayas MD Primary Care Provider [phone] Alma Delia Segura MD Primary Care Prov ider Felecia Thompson MD Unavailable [phone] Jordy Valdez MD Unavailable Unavailab Finesse Smallwood PA-C Unavailable [phone] Javier Patel MD Unavailable [phone] Encounter Details Date Type Department Care Team Description 11/29/2018 Orders Only Radiology - [address] [address] Bibiana Borges MD Social History Tobacco Use Types Packs/Day Years [...] on filedocumented in this encounter Care Teams Fisheries Specialist Relationship Specialty Start Date End Date Bibiana Borges MD PCP - General Internal Medicine 03/02/17 06/24/21 Tiffany Zayas MD [address] [place] [address] PCP - General Internal Medicine 06/25/21 03/27/22 Alma Delia Segura MD [address] [place] [address] PCP - General Internal Medicine 03/28/22 Felecia Thompson MD [address] [place] [address] Specialist Obstetrics/Gynecology 05/04/23 Jordy Valdez MD [address] [place] [address] Specialist Nephrology 05/04/23 Finesse Resendiz, PA-C [address] [place] [address] Specialist ORTHOPEDICS 05/04/23 Javier Patel MD [address] [place] [address] [place] [address] Specialist Cardiovascular Disease 07/11/23 documented as of this encounter
--- OUTSIDE RECORDS SUMMARY | 2024-10-07 19:05 | XMS_ITS | Encounter Summary ---
Author Organization [facility] Address [address] [place] [address] Care Team Providers Care Capacity Analyst Name Role Phone Alma Delia Segura MD Primary Care Prov ider Felecia Thompson MD Unavailable [phone] Jordy Valdez MD Unavailable Unavailab Finesse Smallwood PA-C Unavailable [phone] Javier Patel MD Unavailable [phone] Reason for Visit * Reason Onset Date Comments dizziness 10/17/2023 Encounter Details Date Type Department Care Team Description 10/17/2023 Telephone Triage [address] [place] [address] Alma Delia Segura MD [address] [place] [address] dizziness Social History Tobacco Use Types Packs/Day Years [...] encounter Miscellaneous Notes * Telephone Encounter - Tatiana Delgado L.P.N. - 10/17/2023 10:08 AM EDT [facility] - Telephone Triage Documentation CHIEF COMPLAINT:pt has been having dizziness She has a hx of vertigo She is dizzy at night when she gets up to go to the bathroom That is the only time she feels dizzy Sx are better when she does not take the amlodipine Apt booked Will go to er with worsening sx PCP: Alma Delia Craft LMP/EDC: Current Outpatient Medications Medication Sig Dispense Refill ??? chlorthalidone (HYGROTEN) 25 MG tablet TAKE 1 TABLET BY MOUTH DAILY 90 Tablet 0 ??? Cholecalciferol (Vitamin D3) 50 MCG (1999 UT) Cap Take 2 Capsules by mouth daily. 180 Capsule 1 ??? Diclofenac Sodium 3 % Gel Apply 1 Dose topically 3 times daily as needed (pain). 60 g 6 ??? atenolol (TENORMIN) 50 MG tablet Take 1 Tablet by mouth daily. 90 Tablet 1 ??? atorvastatin (LIPITOR) 20 MG tablet Take 1 Tablet by mouth at bedtime. 90 Tablet 1 ??? amlodipine (NORVASC) 5 MG tablet Take 1 Tablet by mouth at bedtime. 90 Tablet 1 ??? lidocaine (XYLOCAINE) 5 % ointment Apply 1 Tube topically 2 times daily as needed (severe pain of lower back/hip) for up to 30 days. 35.44 g 1 ??? acetaminophen (Tylenol) 325 MG tablet Take 2 Tablets by mouth every 6 hours as needed for Pain.30 Tablet 0 ??? Menthol 3.1 % Gel Apply 1 Tube topically 3 times daily as needed (hip pain). 118 mL 0 ??? Multiple Vitamin (MULTI-VITAMIN) Tab Take by mouth. ??? cetirizine (ZYRTEC) 10 MG tablet Take 1 Tab by mouth daily. 30 Tab 11 No current facility-administered medications for this visit. Allergies: Seasonal allergies Patient Active Problem List Diagnosis Code ??? Hypercholesteremia E78.00 ??? HTN (hypertension) I10 ??? 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 Allergic rhinitis J30.9 ??? Abnormal mammogram R92.8 ??? Varicose veins of legs I83.93 ??? CKD (chronic kidney disease) stage 3, GFR 30-59 ml/min (HCC) N18.30 ??? Osteopenia M85.80 ??? Lichen sclerosus L90.0 ??? Sebaceous cyst L72.3 ??? 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 DDD (degenerative disc disease), lumbar M51.36 ??? MR (mitral regurgitation) I34.0 DISPOSITION:Appointment given REFERENCE:[facility] Telephone Triage Protocols for Nurses by Andria Jordan CALLER UNDERSTANDS & AGREES WITH ADVICE:YES * Telephone Encounter - Loli Juárez - 10/17/2023 9:46 AM EDT Symptoms patient is presenting: patient daughter Marlyn Cole (+VR) is calling for patient - states jomar mother is having symptoms of dizziness and light headed - states she thinks it is Amlodipine that is causing her to feel this way For ALL patients calling to schedule any appointment (routine, sick visit, follow up, consult, etc.) in the outpatient setting please ask the following questions: ?? Do you have fever of higher than 101, sore throat with difficulty swallowing or severe shortnessof breath? NO If YES to any of these above symptoms, send a message to triage and do not book. Red dot. If no, an audio or video visit should be booked. ?? Have you had close contact with someone with Coronavirus in the last 14 days? NO ?? Have you traveled abroad? NO ?? Have you traveled recently to another state outside of [place], [place], [place], [place], [place], [place], [place]? NO o If yes, did you quarantine for 14 days or have a negative covid test? NO If yes to any of the above, patient is not to be scheduled in office until after 14 day quarantine or negative covid test. If pain or injury related was it due to an accident at work or from a motor vehicle accident? NO If yes, gather 3rd constitution party insurance information Date of accident/Injury: n/a How long has patient had these symptoms?: few days PCP: Alma Delia Craft Payor: [facility] MCR / Plan: HMO $0 [facility] [id number] / Product Type: HMO [id number] documented in this encounter Plan of Treatment Not on file documented as of this encounter Visit Diagnoses Not on filedocumented in this encounter Care Teams Capacity Analyst Relationship Specialty Start Date End Date Alma Delia Segura MD [address] [place] [address] PCP - General Internal Medicine 03/28/22 Felecia Thompson MD [address] [place] [address] Specialist Obstetrics/Gynecology 05/04/23 Jordy Valdez MD [address] [place] [address] Specialist Nephrology 05/04/23 Finesse Resendiz PA-C [address] [place] [address] Specialist ORTHOPEDICS 05/04/23 Javier Patel MD [address] [place] [address] [place] [address] Specialist Cardiovascular Disease 07/11/23 documented as of this encounter
--- OUTSIDE RECORDS SUMMARY | 2024-10-07 19:05 | XMS_ITS | Encounter Summary ---
Author Organization [facility] Address [address] [place] [address] Care Team Providers Care Press Technician Name Role Phone Alma Delia Segura MD Primary Care Prov ider Felecia Thompson MD Unavailable [phone] Jordy Valdez MD Unavailable Unavailab Finesse Smallwood PA-C Unavailable [phone] Javier Patel MD Unavailable [phone] Encounter Details Date Type Department Care Team Description 04/05/2022 Orders Only Adult Medicine [address] [address] Brandy See PA-C [address] [place] [address] [phone] Social History Tobacco Use Types Packs/Day Years Used Date Smoking Tobacco: Never Smokeless Tobacco: Never Alcohol Use Standard Drinks/Week Comments Yes 0 (1 standard drink = 0.6 oz pur e alcohol) occ Sex Assigned at Date Recorded Not on file Job Start Date Occupation Industry Not on file Not on file Not on file COVID-19 Exposure Response Date Recorded In the last 10 days, have yo u been in contact with someone who was confirmed or suspected to have Coronavirus/COVID-19? No / Unsure 04/07/2022 1:01 PM EDT documented as of this encounter Plan of Treatment Not on file documented as of this encounter Visit Diagnoses Not on filedocumented in this encounter Care Teams Press Technician Relationship Specialty Start Date End Date Alma Delia Segura MD [address] [place] [address] PCP - General Internal Medicine 03/28/22 Felecia Thompson MD [address] [place] [address] Specialist Obstetrics/Gynecology 05/04/23 Jordy Valdez MD [address] [place] [address] Specialist Nephrology 05/04/23 Finesse Resendiz, PA-C [address] [place] [address] Specialist ORTHOPEDICS 05/04/23 Javier Patel MD [address] [place] [address] [place] [address] Specialist Cardiovascular Disease 07/11/23 documented as of this encounter
--- OUTSIDE RECORDS SUMMARY | 2024-10-07 19:05 | XMS_ITS | Encounter Summary ---
Author Organization [facility] Address [address] [place] [address] Care Team Providers Care Metal Moulder'S Assistant Name Role Phone Bibiana Borges MD Primary Care Provider Unavail able Tiffany Zayas MD Primary Care Provider Alma Delia Segura MD Primary Care Prov ider Felecia Thompson MD Unavailable [phone] Jordy Valdez MD Unavailable Unavailab Finesse Smallwood PA-C Unavailable [phone] Javier Patel MD Unavailable [phone] Encounter Details Date Type Department Care Team Description 04/08/2019 Orders Only Adult Medicine [address] [address] Bibiana Borges MD Preoperative examination; Screening for deficiency anemia Social History Tobacco Use Types Packs/Day Years [...] on file documented as of this encounter Results * (ABNORMAL) BASIC METABOLIC PANEL (04/24/2019 10:39 AM EDT) [facility] Signature GLUCOSE 104(H) 70 - 100 mg/dL 04/24/2019 3:47 PM EDT [facility] Comment:Reference range appl icable to fasting specimens only Blood Urea Nitrogen 20 5 - 25 mg/dL 04/24/2019 3:47 PM EDT [facility] CREAT 1.19(H) 0.5 - 1.1 mg/dL 04/24/2019 3:47 PM EDT [facility] GLOMERULAR FILTRATION RATE 44 04/24/2019 3:47 PM EDT [facility] Comment: If patient is -Emirati, multiply result by 1.21 Chronic Kidney Disease: < 60 ml/min/1.73 square meters Kidney Failure: < 15 ml/min/1.73 square meters NA 141 135 - 145 mEq/L 04/24/2019 3:47 PM EDT [facility] K 4.1 3.5 - 5.5 mmol/L 04/24/2019 3:47 PM EDT [facility] CL 104 96 - 110 mmol/L 04/24/2019 3:47 PM EDT [facility] CARBON DIOXIDE (CO2) 31 21 - 32 mmol/L 04/24/2019 3:47 PM EDT [facility] ANION GAP 6 3 - 11 04/24/2019 3:47 PM EDT [facility] CALCIUM 9.6 8.5 - 10.5 mg/dL 04/24/2019 3:47 PM EDT [facility] 04/24/2019 10:3 9 AM EDT 04/24/2019 10:39 AM EDT Bibiana Borges MD LAB [facility] * (ABNORMAL) CBC (AUTO DIFF PLATELET) (04/24/2019 10:39 AM EDT) WHITE BLOOD COUNT 7.0 4.8 - 10.8 x10-3/uL 04/24/2019 3:36 PM EDT [facility] RED BLOOD COUNT 4.4 3.8 - 4.8 x10-6/uL 04/24/2019 3:36 PM EDT [facility] Hemoglobin 13.5 11.5 - 16.0 g/dL 04/24/2019 3:36 PM EDT [facility] Hematocrit 41.9 35 - 47 % 04/24/2019 3:36 PM EDT [facility] CORPUSCULAR VOLUME 94.4 79 - 98 fL 04/24/2019 3:36 PM EDT [facility] CORPUS[facility]ULAR HEMOGLOBIN 30.4 27 - 32 pg 04/24/2019 3:36 PM EDT [facility] MEAN CORPUSCULAR HGB CONC 32.2 32 - 37 g/dL 04/24/2019 3:36 PM EDT [facility] RED CELL DISTRIBUTION WIDTH 13.9 11 - 15 % 04/24/2019 3:36 PM EDT [facility] COUNT 308 130 - 400 x10-3/uL 04/24/2019 3:36 PM EDT [facility] PLATELET VOLUME 10.3 7 - 11 fL 04/24/2019 3:36 PM EDT [facility] NRBC % AUTO 0.0 <1 % 04/24/2019 3:36 PM EDT [facility] NEUTROPHILS % 60.6 % 04/24/2019 3:36 PM EDT [facility] LYMPH % 28.1 % 04/24/2019 3:36 PM EDT [facility] MONO % 7.4 % 04/24/2019 3:36 PM EDT [facility] EOS % 2.7 % 04/24/2019 3:36 PM EDT [facility] BASO % 0.6 % 04/24/2019 3:36 PM EDT [facility] IMMATURE GRANULOCYTES % 0.6 % 04/24/2019 3:36 PM EDT [facility] NRBC # AUTO 0.00 <0.1 x10-3/uL 04/24/2019 3:36 PM EDT [facility] NEUT # 4.24 1.5 - 7.0 x10-3/uL 04/24/2019 3:36 PM EDT [facility] LYMPH # 1.97 1 - 5.0 x10-3/uL 04/24/2019 3:36 PM EDT [facility] MONO # 0.52 0.2 - 1.0 x10-3/uL 04/24/2019 3:36 PM EDT [facility] EOS # 0.19 0 - 0.5 x10-3/uL 04/24/2019 3:36 PM EDT [facility] BASO # 0.04 0 - 0.2 x10-3/uL 04/24/2019 3:36 PM EDT [facility] IMMATURE GRANULOCYTES # 0.04(H) 0 - 0.03 x10-3/uL 04/24/2019 3:36 PM EDT [facility] 04/24/2019 10:3 9 AM EDT 04/24/2019 10:39 AM EDT Bibiana Borges MD LAB [facility] documented in this encounter Visit Diagnoses Diagnosis Preoperative examination Preoperative examination, unspecified Screening for deficiency anemia Screening for other and unspecified deficiency anemia documented in this encounter Care Teams Metal Moulder'S Assistant Relationship Specialty Start Date End Date Bibiana Borges MD PCP - General Internal Medicine 03/02/17 06/24/21 Tiffany Zayas MD [address] [place] [address] PCP - General Internal Medicine 06/25/21 03/27/22 Alma Delia Segura MD [address] [place] [address] PCP - General Internal Medicine 03/28/22 Felecia Thompson MD [address] [place] [address] Specialist Obstetrics/Gynecology 05/04/23 Jordy Valdez MD [address] [place] [address] Specialist Nephrology 05/04/23 Finesse Resendiz PA-C [address] [place] [address] Specialist ORTHOPEDICS 05/04/23 Javier Patel MD [address] [place] [address] [place] [address] Specialist Cardiovascular Disease 07/11/23 documented as of this encounter
--- OUTSIDE RECORDS SUMMARY | 2024-10-07 19:05 | XMS_ITS | Encounter Summary ---
Author Organization [facility] Address [address] [place] [address] Care Team Providers Care Enrobing Machine Feeder Name Role Phone Bibiana Borges MD Primary Care Provider Unavail able Tiffany Zayas MD Primary Care Provider Alma Delia Segura MD Primary Care Prov ider Felecia Thompson MD Unavailable [phone] Jordy Valdez MD Unavailable Unavailab Finesse Smallwood PA-C Unavailable [phone] Javier Patel MD Unavailable Encounter Details Date Type Department Care Team Description 07/14/2017 Release of Information Medical Records [address] [place] [address] Abstract, Provider Social History Tobacco Use Types [...] on filedocumented in this encounter Care Teams Enrobing Machine Feeder Relationship Specialty Start Date End Date Bibiana Borges MD PCP - General Internal Medicine 03/02/17 06/24/21 Tiffany Zayas MD [address] [place] [address] PCP - General Internal Medicine 06/25/21 03/27/22 Alma Delia Segura MD [address] [place] [address] PCP - General Internal Medicine 03/28/22 Felecia Thompson MD [address] [place] [address] Specialist Obstetrics/Gynecology 05/04/23 Jordy Valdez MD [address] [place] [address] Specialist Nephrology 05/04/23 Finesse Resendiz, PA-C [address] [place] [address] Specialist ORTHOPEDICS 05/04/23 Javier Patel MD [address] [place] [address] [place] [address] Specialist Cardiovascular Disease 07/11/23 documented as of this encounter
--- OUTSIDE RECORDS SUMMARY | 2024-10-07 19:05 | XMS_ITS ---
Author Organization [facility] Address [address] [place] [address] Care Team Providers Care Hospital Education Coordinator Name Role Phone Alma Delia Hayward Primary Care Provider UnaKaye Cantu Unavailable [phone] Storm Holland Unavailable [phone] REASON FOR VISIT Seen Sooner Encounters Encounter Location Date [facility] [address] [facility] [address] [place] [address] 06/26/2024 Storm Holland Plan Of Treatment No Information Progress Notes * Benito OSMANOB:1945 (79 yo F)Acc No.[id number]:06/26/2024 Progress Notes Patient:?Haja OSMAN Provider:?Storm Holland DPM :1945???Age:79 Y???Sex:Female D ate:06/26/2024 Address:[address] [place] [address] [place] Pcp:Alma Delia Hayward Subjective: * Chief Complaints: * ???1. Seen Sooner. * Medical History:? Objective: * Vitals:? Assessment: Plan: * Treatment: * Images: * The named appointment provid er may or may not be the originator of this progress note, and it is not deemed complete until electronically signed by the appointment provider. Sign off status: Pending * Provider:?Storm Holland DPM Date:?2023 Generated for Johny yang/Paul/Len on:?10/07/2024 07:05 PM EDT
--- OUTSIDE RECORDS SUMMARY | 2024-10-07 19:05 | XMS_ITS | Encounter Summary ---
Author Organization [facility] Address [address] [place] [address] Care Team Providers Care Traffic Police Officer Name Role Phone Tiffany Zayas MD Primary Care Provider [phone] Alma Delia Segura MD Primary Care Prov ider Felecia Thompson MD Unavailable [phone] Jordy Valdez MD Unavailable Unavailab Finesse Smallwood PA-C Unavailable [phone] Javier Patel MD Unavailable [phone] Encounter Details Date Type Department Care Team Description 12/10/2021 Camelid Fiber Sorter Report Medical Records [address] [place] [address] Chiropractic, [place] Social History Tobacco Use Types Packs/Day Years [...] on filedocumented in this encounter Care Teams Traffic Police Officer Relationship Specialty Start Date End Date Tiffany Zayas MD [address] [place] [address] PCP - General Internal Medicine 06/25/21 03/27/22 Alma Delia Segura MD [address] [place] [address] [place] [address] PCP - General Internal Medicine 03/28/22 Felecia Thompson MD [address] [place], [place] [phone] Specialist Obstetrics/Gynecology 05/04/23 Jordy Valdez MD [address] [place] [address] Specialist Nephrology 05/04/23 Finesse Resendiz PA-C [address] [place], [place] [phone] Specialist ORTHOPEDICS 05/04/23 Javier Patel MD [address] [place] [address] [place] [address] Specialist Cardiovascular Disease 07/11/23 documented as of this encounter
--- OUTSIDE RECORDS SUMMARY | 2024-10-07 19:05 | XMS_ITS | Encounter Summary ---
Author Organization [facility] Address [address] [place] [address] Care Team Providers Care Airport Engineer Name Role Phone Bibiana Borges MD Primary Care Provider Unavail able Tiffany Zayas MD Primary Care Provider [phone] Alma Delia Segura MD Primary Care Prov ider Felecia Thompson MD Unavailable [phone] Jordy Valdez MD Unavailable Unavailab Finesse Smallwood PA-C Unavailable [phone] Javier Patel MD Unavailable [phone] Reason for Referral * Non [place] (Priority) - Closed Specialty Diagnoses / Procedures Referred By Contac t Referred To Contact Nephrology Procedures REFERRAL TO NEPHROLOGY Bibiana Borges MD [address] [place] [address] Nephrology/[place] [address] [place] [address] Referral ID Status Reason Start Date Expiration Date Visits Re quested Visits Authorized [id number] Closed 04/13/2018 04/13/2019 1 1 Encounter Details Date Type Department Care Team Description 04/13/2018 Orders Only Adult Medicine [address] [address] Bibiana Borges MD Social History Tobacco Use [...] on filedocumented in this encounter Care Teams Airport Engineer Relationship Specialty Start Date End Date Bibiana Borges MD PCP - General Internal Medicine 03/02/17 06/24/21 Tiffany Zayas MD [address] [place] [address] PCP - General Internal Medicine 06/25/21 03/27/22 Alma Delia Segura MD [address] [place] [address] PCP - General Internal Medicine 03/28/22 Felecia Thompson MD [address] [place] [address] Specialist Obstetrics/Gynecology 05/04/23 Jordy Valdez MD [address] [place] [address] Specialist Nephrology 05/04/23 Finesse Resendiz PA-C [address] [place] [address] Specialist ORTHOPEDICS 05/04/23 Javier Patel MD [address] [place] [address] [place] [address] Specialist Cardiovascular Disease 07/11/23 documented as of this encounter
--- OUTSIDE RECORDS SUMMARY | 2024-10-07 19:05 | XMS_ITS | Clinical Summary ---
Author Organization [facility] Address [address] [place] [address] Care Team Providers Care Envelope Sealer Name Role Phone Joshua Orosco MD Primary Care Provider [phone] Allergies Active Allergy Reactions Criticality Noted Date Comments Seasonal 10/11/2017 Medications Medication Sig Dispensed Refills Start Date End Date Status acetaminophen (TYLENOL EXTRA STRENGTH) 500 MG tablet Take 500 mg by mouth. 0 10/02/2017 Active chlorthalidone (HYGROTON) 50 MG tablet Take 25 mg by mouth. 0 Active albuterol (PROVENTIL) (5 MG/ML) 0.5% nebulizer solution Inhale into the lungs. 0 Active atenolol (TENORMIN) tablet 50 mg Take 50 mg by mouth. 0 09/11/2018 Active ipratropium-albuterol (COMBIVENT RESPIMAT) 20-100 MCG/ACT inhaler Inhale 1 puff into the lungs. 0 08/14/2018 Active Active Problems Problem Noted Date Diagnosed Date Complete tear of left rotator cuff 09/20/2018 Social History Tobacco Use Types Packs/Day Years Used Date Smoking Tobacco: Never Smokeless Tobacco: Never Alcohol Use Standard Drinks/Week Comments No 0 (1 standard drink = 0.6 oz pur e alcohol) Sex and Gender Information Value Date Recorded Sex Assigned at Not on file Gender Identity Not on file Sexual Orientation Not on file Last Filed Vital Signs Vital Sign Reading Time Taken Comments Blood Pressure - - Pulse - - Temperature - - Respiratory Rate - - Oxygen Saturation - - Inhaled Oxygen Concentration - - Weight 68 kg (150 lb) 07/04/2018 3:04 PM EST Height 157.5 cm (5' 2 ) 07/04/2018 3:04 PM EST Body Mass Index 27.44 07/04/2018 3:04 PM EST Plan of Treatment Health Maintenance Due Date Last Done Comments Hepatitis C Screening 1945 COVID-19 Vaccine (#1) 1945 Depression Screening 1958 Preventative Health Evaluation 1964 DTap / Tdap / Td (1 - Tdap) 1965 Shingrix-Zoster Vaccine (1 of 2) 1996 Fall Risk Assessment 2011 Osteoporosis Screening (DEXA Scan) 2011 Pneumococcal Vaccine (2 of 2 - PCV) 08/30/2018 08/30/2017 RSV Adult > 60+ Yrs or Pregn ant (1 - 1-dose 75+ series) 2021 Influenza Vaccine (#1) 2024 04/23/2018 Hepatitis B Vaccines Aged Out No long er eligible based on patient's age to complete this topic RSV Ped < 20 months Aged Out No longe r eligible based on patient's age to complete this topic Care Teams Envelope Sealer Relationship Specialty Start Date End Date Joshua Orosco MD PCP - General Medical Support Specialist 06/12/18
--- OUTSIDE RECORDS SUMMARY | 2024-10-07 19:05 | XMS_ITS | Encounter Summary ---
Author Organization [facility] Address [address] [place] [address] Care Team Providers Care Printing Bindery Assistant Name Role Phone Bibiana Borges MD Primary Care Provider Unavail able Tiffany Zayas MD Primary Care Provider Alma Delia Segura MD Primary Care Prov ider Felecia Thompson MD Unavailable [phone] Jordy Valdez MD Unavailable Unavailab Finesse Smallwood PA-C Unavailable [phone] Javier Patel MD Unavailable [phone] Encounter Details Date Type Department Care Team Description 12/31/2018 Business Doc Medical Records [address] [place] [address] Abstract, Provider Social History Tobacco Use Types [...] on filedocumented in this encounter Care Teams Printing Bindery Assistant Relationship Specialty Start Date End Date Bibiana Borges MD PCP - General Internal Medicine 03/02/17 06/24/21 Tiffany Zayas MD [address] [place] [address] PCP - General Internal Medicine 06/25/21 03/27/22 Alma Delia Segura MD [address] [place] [address] PCP - General Internal Medicine 03/28/22 Felecia Thompson MD [address] [place] [address] Specialist Obstetrics/Gynecology 05/04/23 Jordy Valdez MD [address] [place] [address] Specialist Nephrology 05/04/23 Finesse Resendiz, PA-C [address] [place] [address] [phone] Specialist ORTHOPEDICS 05/04/23 Javier Patel MD [address] [place] [address] [place] [address] Specialist Cardiovascular Disease 07/11/23 documented as of this encounter
--- OUTSIDE RECORDS SUMMARY | 2024-10-07 19:05 | XMS_ITS | Encounter Summary ---
Author Organization [facility] Address [address] [place] [address] Care Team Providers Care Cut Off Machine Operator Name Role Phone Alma Delia Segura MD Primary Care Prov ider Felecia Thompson MD Unavailable [phone] Jordy Valdez MD Unavailable Unavailab Finesse Smallwood PA-C Unavailable [phone] Javier Patel MD Unavailable [phone] Encounter Details Date Type Department Care Team Description 07/19/2023 Release of Information Medical Records [address] [place] [address] [facility] Social History Tobacco Use Types Packs/Day Years [...] on filedocumented in this encounter Care Teams Cut Off Machine Operator Relationship Specialty Start Date End Date Alma Delia Segura MD [address] [place] [address] [phone] PCP - General Internal Medicine 03/28/22 Felecia Thompson MD [address] [place] [address] [phone] Specialist Obstetrics/Gynecology 05/04/23 Jordy Valdez MD [address] [place] [address] Specialist Nephrology 05/04/23 Finesse Resendiz PAFelisa [address] [place] [address] Specialist ORTHOPEDICS 05/04/23 Javier Patel MD [address] [place] [address] [place] [address] Specialist Cardiovascular Disease 07/11/23 documented as of this encounter
--- OUTSIDE RECORDS SUMMARY | 2024-10-07 19:05 | XMS_ITS | Encounter Summary ---
Author Organization [facility] Address [address] [place] [address] Care Team Providers Care Pillow Agent Name Role Phone Bibiana Borges MD Primary Care Provider Unavail able Tiffany Zayas MD Primary Care Provider [phone] Alma Delia Segura MD Primary Care Prov ider Felecia Thompson MD Unavailable [phone] Jordy Valdez MD Unavailable Unavailab Finesse Smallwood PA-C Unavailable [phone] Javier Patel MD Unavailable [phone] Encounter Details Date Type Department Care Team Description 10/07/2017 Sidehand Report Medical Records [address] [place] [address] Brandy Nixon Social History Tobacco Use Types Packs/Day Years [...] on filedocumented in this encounter Care Teams Pillow Agent Relationship Specialty Start Date End Date Bibiana Borges MD PCP - General Internal Medicine 03/02/17 06/24/21 Tiffany Zayas MD [address] [place] [address] [phone] PCP - General Internal Medicine 06/25/21 03/27/22 Alma Delia Segura MD [address] [place] [address] PCP - General Internal Medicine 03/28/22 Felecia Thompson MD [address] [place] [address] Specialist Obstetrics/Gynecology 05/04/23 Jordy Valdez MD [address] [place] [address] Specialist Nephrology 05/04/23 Finesse Resendiz, PA-C [address] [place] [address] Specialist ORTHOPEDICS 05/04/23 Javier Patel MD [address] [place] [address] [place] [address] Specialist Cardiovascular Disease 07/11/23 documented as of this encounter
--- OUTSIDE RECORDS SUMMARY | 2024-10-07 19:05 | XMS_ITS ---
Author Organization [facility] Address [address] [place] [address] Care Team Providers Care Director Airport Operations Name Role Phone Alma Delia Hayward Primary Care Provider Unava ilKaye Austin [facility] [phone] Encounters Encounter Location Date Provider Diagnosis [facility] [address] [place] [address] 06/20/2024 Kaye Colon Plan Of Treatment No Information Progress Notes * Jay OSMANPedritoOB:1945 (79 yo F)Acc No.[id number]:06/20/2024 Progress Notes Patient:Haja MCNAIR Provider:?Kaye Colon DPM :1945???Age:79 Y???Sex:Female D ate:06/20/2024 Address:[address] [place], [place] [address] Pcp:Alma Delia Hayward Subjective: * Chief Complaints: * ??? * Medical History:? Objective: * Vitals:? Assessment: Plan: * Treatment: * Images: * The named appointment provid er may or may not be the originator of this progress note, and it is not deemed complete until electronically signed by the appointment provider. Sign off status: Pending * Provider:?Kaye Colon DPM Date:?1 08/20/2023 Generated for Johny yang/Paul/eTransmitting on:?10/07/2024 07:04 PM EDT
--- OUTSIDE RECORDS SUMMARY | 2024-10-07 19:05 | XMS_ITS | Encounter Summary ---
Author Organization [facility] Address [address] [place] [address] Care Team Providers Care Heat Treating Furnace Tender Name Role Phone Alma Delia Segura MD Primary Care Prov ider Felecia Thompson MD Unavailable [phone] Jordy Valdez MD Unavailable Unavailab Finesse Smallwood PA-C Unavailable [phone] Javier Patel MD Unavailable [phone] Reason for Referral * EXTERNAL (Routine) - Authorized/Booked Specialty Diagnoses / Procedures Referred By Sigifredo martin Referred To Contact Physical Therapy Procedures REFERRAL TO PHYSICAL THERAPY Nelli Gonsalez MD [address] [place] [address] [facility] Referral ID Status Reason Start Date Expiration Date V isits Requested Visits Authorized [id number] Authorized/B ooked 04/18/2022 07/25/2022 1 1 Encounter Details Date Type Department Care Team Description 04/18/2022 Orders Only Adult Medicine [address] [address] Nelli Gonsalez MD [address] [place] [address] Social History Tobacco Use Types Packs/Day Years [...] suspected to have Coronavirus/COVID-19? No / Unsure 04/15/2022 3:04 PM EDT documented as of this encounter Plan of Treatment Not on file documented as of this encounter Visit Diagnoses Not on filedocumented in this encounter Care Teams Heat Treating Furnace Tender Relationship Specialty Start Date End Date Alma Delia Segura MD [address] [place] [address] PCP - General Internal Medicine 03/28/22 Felecia Thompson MD [address] [place] [address] Specialist Obstetrics/Gynecology 05/04/23 Jordy Valdez MD [address] [place] [address] Specialist Nephrology 05/04/23 Finesse Resendiz PA-C [address] [place] [address] Specialist ORTHOPEDICS 05/04/23 Javier Patel MD [address] [place] [address] [place] [address] Specialist Cardiovascular Disease 07/11/23 documented as of this encounter
--- OUTSIDE RECORDS SUMMARY | 2024-10-07 19:05 | XMS_ITS | Encounter Summary ---
Author Organization Formerly [facility] Address [address] [place] [address] Care Team Providers Care Manager Corporate Responsibility Name Role Phone Alma Delia Segura MD Primary Care Prov ider Felecia Thompson MD Unavailable [phone] Jordy Valdez MD Unavailable Unavailab Finesse Smallwood PA-C Unavailable [phone] Javier Patel MD Unavailable [phone] Encounter Details Date Type Department Care Team Description 12/02/2022 SCAN Medical Records [address] [place] [id number] Jordy Valdez MD Social History Tobacco Use Types Packs/Day [...] on file documented as of this encounter Procedures Procedure Name Priority Date/Time Associated Diagnosis Comments OUTSIDE LAB Routine 12/02/2022 documented in this encounter Results * OUTSIDE LAB (12/02/2022) Provider Default LAB documented in this encounter Visit Diagnoses Not on filedocumented in this encounter Care Teams Manager Corporate Responsibility Relationship Specialty Start Date End Date Alma Delia Segura MD [address] [place] [phone] PCP - General Internal Medicine 03/28/22 Felecia Thompson MD [address] [place] [address]266 Specialist Obstetrics/Gynecology 05/04/23 Jordy Valdez MD [address] [place] [address] Specialist Nephrology 05/04/23 Finesse Resendiz PA-C [address] [place] [address] [phone] Specialist ORTHOPEDICS 05/04/23 Javier Patel MD [address] [place] [address] [place] [address] Specialist Cardiovascular Disease 07/11/23 documented as of this encounter
--- OUTSIDE RECORDS SUMMARY | 2024-10-07 19:05 | XMS_ITS | Encounter Summary ---
Author Organization [facility] Address [address] [place] [address] Care Team Providers Care Language Therapist Name Role Phone Tiffany Zayas MD Primary Care Provider [phone] Alma Delia Segura MD Primary Care Prov ider Felecia Thompson MD Unavailable [phone] Jordy Valdez MD Unavailable Unavailab Finesse Smallwood PA-C Unavailable [phone] Javier Patel MD Unavailable [phone] Encounter Details Date Type Department Care Team Description 09/23/2021 Lpn Care Manager Report Medical Records [address] [place] [phone] Jordy Valdez MD Social History Tobacco Use [...] on filedocumented in this encounter Care Teams Language Therapist Relationship Specialty Start Date End Date Tiffany Zayas MD [address] [place] [phone] PCP - General Internal Medicine 06/25/21 03/27/22 Alma Delia Segura MD [address] [place] [address] PCP - General Internal Medicine 03/28/22 Felecia Thompson MD [address] [place] [address] Specialist Obstetrics/Gynecology 05/04/23 Jordy Valdez MD [address] [place] [address] Specialist Nephrology 05/04/23 Finesse Resendiz, PA-C [address] [place] [address] Specialist ORTHOPEDICS 05/04/23 Javier Patel MD [address] [place] [address] [place] [address] Specialist Cardiovascular Disease 07/11/23 documented as of this encounter
--- OUTSIDE RECORDS SUMMARY | 2024-10-07 19:05 | XMS_ITS | Clinical Summary ---
Author Organization [place] [id number] [facility] Address [address] [place] [phone] Phone Care Team Providers Care Felt Hat Steamer Name Role Phone Alma Delia Drew MD Primary Care Prov ider Allergies Active Allergy Reactions Criticality Noted Date Comments Levonorgestrel-Ethinyl Estrad 2017 Other 10/11/2017 Seasonal Medications chlorthalidone (HYGROTON) 25 mg tablet TAKE 1 TABLET BY MOUTH DAILY 90 tablet 1 4 Active acetaminophen (TYLENOL) 500 mg tablet Take 1 tablet (500 mg total) by mouth. 8 Active atorvastatin (LIPITOR) 20 mg tablet Take 1 tablet (20 mg total) by mouth daily. 2 Active cetirizine (ZyrTEC) 10 mg tablet Take 1 tablet (10 mg total) by mouth 1 (one) time each day. 0 Active cholecalciferol (VITAMIN D-3) 50 mcg (2,000 unit) capsule Take 2 capsules (4,000 Units total) by mouth 1 (one) time each day. 4 Active diclofenac sodium 3 % gel Apply 1 Dose topically. 3 Active lidocaine (XYLOCAINE) 5 % ointment Apply 1 Tube topically 2 (two) times a day. 2 Active camphor-methyl salicyl-menthoL 3.1-15-10 % gel Apply 1 Tube topically. 2 Active amLODIPine (NORVASC) 2.5 mg tablet TAKE 1 TABLET BY MOUTH DAILY 90 tablet 1 4 Active multivitamin (MULTIPLE VITAMINS ORAL) Take by mouth. Active triamcinolone (KENALOG) 0.1 % ointment APPLY A PEA SIZED AMOUNT MONDAY, MONDAY, AND MONDAY NIGHTS 30 g 5 Active atenoloL (TENORMIN) 50 mg tablet TAKE 1 TABLET BY MOUTH DAILY 90 tablet 5 Active Active Problems Problem Noted Date Diagnosed Date MR (mitral regurgitation) 09/06/2023 Overview (06/10/2024): Last Assessment & Plan: The patient was found to have mild mitral valve insufficiency, mild aortic valve insufficiency, and mild-moderate tricuspid valve insufficiency on her echocardiogram done in June 2023. Overall, no significant changes in her mild valvular heart disease, when compared to her prior echocardiogram from July 2021. Currently, the patient is asymptomatic from a cardiac standpoint. As such, recommend for the patient to undergo a follow-up echocardiogram in 3 for reevaluation of her valvular heart disease (or earlier if she develops any symptoms suggestive of worsening valvular disease). 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 She will restart [facility] triamcinolone ointment. Sebaceous cyst 04/14/2020 Overview (06/10/2024): Last Assessment & Plan: Given patient is symptomatic, annoying when washing, she desires removal. See below. Vulvar Biopsy Reason for biopsy: Encounter Diagnoses Name Primary? ? Sebaceous cyst The patient was consented for vulvar excision. Risks reviewed including bleeding, infection, and hematoma formation. She was placed in dorsal lithotomy position. The area of planned biopsy was prepped with betadine and infiltrated with a total of 1 cc of 1% Lidocaine over surface of cyst. A 1 cm incision was made with a scalpel. The fibrous underlying mass was grasped and shelled out with scissors. Minimal bleeding noted. Hemostasis achieved with silver nitrate. Given incision so small and superficial, skin not closed. Area covered with zinc oxide. The patient tolerated the procedure well. Verbal and written instructions were provided. PRATIBHA JERRY MD Osteopenia 12/28/2018 Overview (06/10/2024): Bone density test from November 2018 Complete tear of left rotator cuff 09/20/2018 CKD (chronic kidney disease) stage 3, GFR 30-59 ml/min 07/13/2017 Overview (06/10/2024): Dr. 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 The patient is currently on atorvastatin 20 mg orally daily. We will order a new lipid panel to evaluate the patient's current lipid control and determine if any adjustment are needed in the lipid lowering therapy. Hypertensive disorder 05/02/2017 Overview (06/10/2024): Est cardiac risk 17.5 % Varicose veins of legs 05/02/2017 Abnormal mammogram 06/30/2016 Overview (06/10/2024): ? Result RIGHT mammo 06/2016 was to be 09/2016, biopsy of left benign Immunizations Name Administration Dates Next Due Influenza trivalent, 0.5mL ( Fluad) 65yo and older 05/04/2023,04/15/2022,07/27/2019 Influenza trivalent, 0.5mL ( Fluzone High-dose) 65yo and older 06/30/2021,04/23/2018 Pneumococcal polysaccharide 23 valent (Pneumovax 23) 2yo and older 08/30/2017 Td Tetanus diptheria (Tdvax) 7yo and older 04/23,08/30/2017 Surgical History Surgery Date Site/Laterality Comments SHOULDER SURGERY Right PROCEDURE: HISTORICAL SHOULDER SURGERY TUBAL LIGATION PROCEDURE: HISTORICAL TUBAL LIGATION BREAST LUMPECTOMY Left PROCEDURE: ---- BREAST LUMP BIOPSY ----; COMMENT: x2 benign BREAST BIOPSY PROCEDURE: BX BREAST; PERC NEEDLE CORE W/IMAG GUID; COMMENT: left breast bx-benign--2016 Medical History Medical History Date Comments DJD (degenerative joint dise ase) of knee 05/02/2017 DX:DJD (degenerative joint d isease) of knee HTN (hypertension) 05/02/2017 DX:HTN (hyper tension); COMMENT: Est cardiac risk 17.5 % Pure hypercholesterolemia 05/02/2017 DX:Pur e hypercholesterolemia Varicose veins of legs 05/02/2017 DX:Varico se veins of legs 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 Result RIGHT mammo 06/2016 was to be 09/2016, biopsy of left benign Osteopenia 12/28/2018 DX:Osteopenia; C OMMENT: Bone density test from November 2018 Family History Medical History Relation Name Comments COPD Brother Other: Other Father lived to 104, d ementia Dementia Mother Breast cancer Neg Hx Colon cancer Neg Hx Ovarian cancer Neg Hx Pancreatic cancer Neg Hx Prostate cancer Neg Hx Uterine cancer Neg Hx Relation Name Status Comments Brother Father Mother Social History Tobacco Use Types Packs/Day Years Used Date Smoking Tobacco: Never Smokeless Tobacco: Never Alcohol Use Standard Drinks/Week Comments Not Currently 0 (1 standard drink = 0.6 oz pur e alcohol) Comments Unknown Sex and Gender Information Value Date Recorded Sex Assigned at Not on file Legal Sex Female 11:39 AM EST Gender Identity Not on file Sexual Orientation Not on file Obstetrics History Last Filed Vital Signs Vital Sign Reading Time Taken Comments Blood Pressure 136/71 05/06/2024 2:30 PM EDT Pulse 74 05/06/2024 2:30 PM EDT Temperature - - Respiratory Rate - - Oxygen Saturation - - Inhaled Oxygen Concentration - - Weight 67.7 kg (149 lb 3.2 oz) 05/06/2024 2:30 P M EDT Height 157.5 cm (5' 2 ) 05/06/2024 2:30 PM EDT Body Mass Index 27.29 05/06/2024 2:30 PM EDT Plan of Treatment Upcoming Encounters Date Type Department Care Team (Late st Contact Info) Description 11/05/2024 2:30 PM EDT Office Visit Adult Medicine [address] [phone] Alma Delia Drew MD [address] [place] [phone] Health Maintenance Due Date Last Done Comments Zoster Vaccines (1 of 2) 1964 Pneumococcal Vaccine: 50+ Years (2 of 2 - PCV) 08/30/2018 08/30/2017 COVID-19 Vaccine (3 - Pfizer risk series) 01/21/2021 12/24/2020, 12/03/2020 RSV Immunization Patients 60+ Years Old (1 - 1-dose 75+ series) 2021 Hepatitis C Screening 07/09/2022 Medicare Annual Wellness Visit 07/09/2022 Social Influencers of Health Screening 07/09/2022 Influenza Vaccine (#1) 2024 , 04/15/2022, 06/30/2021, Additional history exists Hypertension/CHF/CAD Annual BMP Blood Test 04/03/2025 04/03/2024, 04/03/2024, 04/03/2024 Depression Screening 05/06/2025 05/06/2024 Falls Risk Assessment 05/06/2025 05/06/2024 DTaP,Tdap,and Td Vaccines (3 - Td or Tdap) 04/23/2028 04/23/2018, 08/30/2017 Osteoporosis Screening (Bone Density Screening) 12/27/2028 12/27/2018 Cholesterol Screening (Lipid Panel) 04/03/2029 04/03/2024, 04/03/2024 HIB Vaccines Aged Out No longer eligi ble based on patient's age to complete this topic HPV Vaccines Aged Out No longer eligi ble based on patient's age to complete this topic Hepatitis A Vaccines Aged Out No long er eligible based on patient's age to complete this topic Hepatitis B Vaccines Aged Out No long er eligible based on patient's age to complete this topic IPV Vaccines Aged Out No longer eligi ble based on patient's age to complete this topic MMR Vaccines Aged Out No longer eligi ble based on patient's age to complete this topic Meningococcal ACWY Vaccine Aged Out N o longer eligible based on patient's age to complete this topic Meningococcal B Vacine Aged Out No lo nger eligible based on patient's age to complete this topic RSV Immunization Patients Under 20 months Aged Out No longer eligible based on patient's age to complete this topic Varicella Vaccines Aged Out No longer eligible based on patient's age to complete this topic Procedures Procedure Name Priority Date/Time Associated Diagnosis Comments DEPRESSION SCREENING Routine 05/06/2024 FALLS RISK ASSESSMENT Routine 05/06/2024 ANNUAL BMP BLOOD TEST Routine 04/03/2024 LIPID PANEL Routine 04/03/2024 DXA BONE DENSITY STUDY 1+ SITS AXIAL SKEL Routine 12/27/2018 1:43 PM EDT Encounter for screening for osteoporosis from Last 3 Months or Most Recently Relevant to Health Maintenance Results * Falls Risk Assessment (05/06/2024) Pathologist [facility] Falls Risk Assessment abstracted us Historical Provider MD HEALTH MAINTENANCE Final Result * Depression Screening (05/06/2024) Pathologist [facility] Depression Screening abstracted Historical Provider HEALTH MAINTENANCE Final Result * Annual BMP Blood Test (04/03/2024) [facility] Annual BMP Blood Test abstracted Historical Provider HEALTH MAINTENANCE Final Result * Lipid panel (04/03/2024) [facility] LDL/HDL Ratio 0 Triglycerides 0 mg/dL Cholesterol 0 mg/dL HDL 0 mg/dL LDL Cholesterol 0 mg/dL Blood Venous blood specimen / Unknown Historical Provider LAB BLOOD ORDERABLES Kyleigh l Result * DXA BONE DENSITY STUDY 1+ SITS AXIAL SKEL (12/27/2018 1:43 PM EDT) Anatomical Region Laterality Modality Bone Densitometr y 04/23/2018 3:44 PM EDT Narrative 12/27/2018 2:52 PM EDT BONE DENSITY ? Lumbar Spine T-score is -2.1 ?? (SD relative to 20-29 y/o adult) Z-score is +0.2 ??(SD relative to age matched peers) This is consistent with osteopenia by criteria defined by the WHO. Left Hip T-score is -2.1 Z-score is -0.2 This is consistent with osteopenia by criteria defined by the WHO. Impression: Based on the World Health Organization criteria, Haja Cole should be classified as having osteopenia. This patient has a 12% risk of major osteoporotic fracture and a 5.1% risk of hip fracture over the next 10 years. (World Health Organization Fracture Risk Assessment) [facility] Department of Internal Medicine recommends using National Osteoporosis Foundation (NOF) guidelines in treatment decisions related to osteoporosis. NOF guidelines suggest considering treatment for postmenopausal women and men aged 50 or older presenting with the following: History of hip or vertebral fracture. T-score less than or equal to -2.5 (DXA) at the femoral neck, total hip, or spine, after appropriate evaluation to exclude secondary causes. Low bone mass (T-score between -1.0 and -2.5 at the femoral neck or spine) AND a 10-year probability of a hip fracture greater than or equal to 3% OR a 10-year probability of a major osteoporosis-related fracture greater than or equal to 20% based on the [place]-adapted WHO algorithm Please note that all treatment decisions require clinical judgment and consideration of individual patient factors, including patient preferences, co-morbidities, previous drug use, risk factors not captured in the FRAX model (e.g., frailty, falls, vitamin D deficiency, increased bone turnover, interval significant decline in bone density) and possible under- or over-estimation of fracture risk by FRAX. Procedure Note Darian Wells - 07/19/2022 BONE DENSITY Lumbar Spine T-score is -2.1 (SD relative to 20-29 y/o adult) Z-score is +0.2 (SD relative to age matched peers) This is consistent with osteopenia by criteria defined by the WHO. Left Hip T-score is -2.1 Z-score is -0.2 This is consistent with osteopenia by criteria defined by the WHO. Impression: Based on the World Health Organization criteria, Haja Cole should beclassified as having osteopenia. This patient has a 12% risk of majorosteoporotic fracture and a 5.1% risk of hip fracture over the next 10years. (World Health Organization Fracture Risk Assessment) [facility] Department of Internal Medicine recommendsusing National Osteoporosis Foundation (NOF) guidelines in treatmentdecisions related to osteoporosis. NOF guidelines suggest consideringtreatment for postmenopausal women and men aged 50 or older presentingwith the following: History of hip or vertebral fracture. T-score less than or equal to -2.5 (DXA) at the femoral neck, total hip,or spine, after appropriate evaluation to exclude secondary causes. Low bone mass (T-score between -1.0 and -2.5 at the femoral neck or spine)AND a 10-year probability of a hip fracture greater than or equal to 3% ORa 10-year probability of a major osteoporosis-related fracture greaterthan or equal to 20% based on the [place]-adapted WHO algorithm Please note that all treatment decisions require clinical judgment andconsideration of individual patient factors, including patientpreferences, co-morbidities, previous drug use, risk factors not capturedin the FRAX model (e.g., frailty, falls, vitamin D deficiency, increasedbone turnover, interval significant decline in bone density) and possibleunder- or over-estimation of fracture risk by FRAX. Bibiana Borges MD IMG DXA PROCEDURES Final Res ult from Last 3 Months or Most Recently Relevant to Health Maintenance Insurance [employer] MEDICARE Member Subscriber Plan / Payer (Ef fective 2020-Present) Name:Haja Cole Relation to Subscriber:Self Name:Haja Cole Payer ID:[id number] Group ID:[id number] Type:Not on file Address: [place] [address] [id number] Care Teams Felt Hat Steamer Relationship Specialty Start Date End Date Alma Delia Drew MD [address] [place] [address] PCP - General Internal Medicine 06/20/24
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
--- OUTSIDE RECORDS SUMMARY | 2024-10-07 19:06 | XMS_ITS | Encounter Summary ---
Author Organization [facility] Address [address] [place] [address] Care Team Providers Care Order Expediter Name Role Phone Tiffany Zayas MD Primary Care Provider Alma Delia Segura MD Primary Care Prov ider Felecia Thompson MD Unavailable [phone] Jordy Valdez MD Unavailable Unavailab Finesse Smallwood PA-C Unavailable [phone] Javier Patel MD Unavailable [phone] Reason for Visit * Reason Onset Date Comments Reservoir Engineering Advisor Feedback 03/15/2022 Physiatry Encounter Details Date Type Department Care Team Description 03/15/2022 Telephone Adult Medicine [address] [phone] Brandy See PA-C [address] [place] [address] [phone] Reservoir [employer] Advisor Feedback (Physiatry) Social History Tobacco Use Types Packs/Day Years [...] suspected to have Coronavirus/COVID-19? No / Unsure 03/17/2022 2:53 PM EDT documented as of this encounter Miscellaneous Notes * Telephone Encounter - Brandy See PA-C - 03/15/2022 2:31 PM EDT I am not sure what the waiting time will be to schedule physiatry appointment; patient simply wanted cortisone injection for bilateral knee pain which likely can be accommodated sooner in [facility] orthopedics - please advise. Brandy See PA-C * Telephone Encounter - Thais Carter - 03/15/2022 1:30 PM EDT Oliver Nava is declining the referral to orthopedics. Requesting Jared Yuen with [facility].I have pended a new order. Please review and sign. Thank you, Thais Vergara Referrals Rep documented in this encounter Plan of Treatment Not on file documented as of this encounter Visit Diagnoses Not on filedocumented in this encounter Care Teams Order Expediter Relationship Specialty Start Date End Date Tiffany Zayas MD [address] [place] [phone] PCP - General Internal Medicine 06/25/21 03/27/22 Alma Delia Segura MD [address] [place] [address] PCP - General Internal Medicine 03/28/22 Felecia Thompson MD [address] [place] [address] Specialist Obstetrics/Gynecology 05/04/23 Jordy Valdez MD [address] [place] [address] Specialist Nephrology 05/04/23 Finesse Resendiz PA-C [address] [place] [address] Specialist ORTHOPEDICS 05/04/23 Javier Patel MD [address] [place] [address] [place] [address] Specialist Cardiovascular Disease 07/11/23 documented as of this encounter
--- OUTSIDE RECORDS SUMMARY | 2024-10-07 19:06 | XMS_ITS | Encounter Summary ---
Author Organization [facility] Address [address] [place] [address] Care Team Providers Care Optical Engineer Name Role Phone Tiffany Zayas MD Primary Care Provider [phone] Alma Delia Segura MD Primary Care Prov ider Felecia Thompson MD Unavailable [phone] Jordy Valdez MD Unavailable Unavailab Finesse Smallwood PA-C Unavailable [phone] Javier Patel MD Unavailable [phone] Encounter Details Date Type Department Care Team Description 03/03/2022 Orders Only Radiology - [address] [address] Radiology, Authorizing Social History Tobacco Use Types Packs/Day Years [...] suspected to have Coronavirus/COVID-19? No / Unsure 03/03/2022 1:59 PM EDT documented as of this encounter Plan of Treatment Not on file documented as of this encounter Visit Diagnoses Not on filedocumented in this encounter Care Teams Optical Engineer Relationship Specialty Start Date End Date Tiffany Zayas MD [address] [place] [id number] PCP - General Internal Medicine 06/25/21 03/27/22 Alma Delia Segura MD [address] [place] [id number] PCP - General Internal Medicine 03/28/22 Felecia Thompson MD [address] [place] [address] Specialist Obstetrics/Gynecology 05/04/23 Jordy Valdez MD [address] [place] [address] Specialist Nephrology 05/04/23 Finesse Resendiz, PA-C [address] [place] [address] Specialist ORTHOPEDICS 05/04/23 Javier Patel MD [address] [place] [address] [place] [address] Specialist Cardiovascular Disease 07/11/23 documented as of this encounter
[2024-10-07] MEDS: Sucralfate Oral Suspension 1 GM/10 ML ORAL.SUSP PO (20:11)
[2024-10-07 20:14] VITALS: BP 122/70; PULSE 59; RESP 16; TEMP 36.4; O2SAT 95
== END 2024-10-07 20:19 | disposition home or self-care (01) ==
PROVIDERS: Physician Assistant Medical; Emergency Provider Emergency Medicine
DX: K29.70 Gastritis, unspecified, without bleeding (principal)
CPT/HCPCS: 36415; 76705; 80053; 83690; 83735; 84484; 85025; 93005; 96374; 96375; 96376; 99284; 99285; J2270; J2405

== ENCOUNTER → 2024-10-07 17:38 | Outpatient (BNV) | payer MEDICARE, SELFPAY | PROVIDERS: Emergency Provider Emergency Medicine; Visit Provider Internal Medicine | DX: R07.9 Chest pain, unspecified (principal); I45.10 Unspecified right bundle-branch block; R94.31 Abnormal electrocardiogram [ECG] [EKG] | CPT/HCPCS: 93010 ==

== ENCOUNTER → 2024-10-07 17:52 | Outpatient (BNV) | payer MEDICARE, SELFPAY | PROVIDERS: Emergency Provider Emergency Medicine; Visit Provider Student in an Organized Health Care Education/Training Program | DX: R10.11 Right upper quadrant pain (principal); R11.0 Nausea | CPT/HCPCS: 76705 ==

== ENCOUNTER 2024-11-11 10:14 | Emergency (ER) | payer OTHER, SELFPAY ==
--- NOTE | ~2024-11-11 | XR_ITS ---
EXAMINATION: XR HIP 1 VIEW RIGHT WITH PELVIS HISTORY: pain, injury COMPARISON: There are no prior studies for comparison. FINDINGS: A single AP view of the pelvis and two views of the right hip are submitted. The bones are osteopenic. There is no fracture or dislocation. The joint space is maintained. The soft tissues are unremarkable. XR/XR hip RT w PEL1V IMPRESSION: Osteopenia. No evidence of fracture of the right hip. Electronically signed by: Alexi Landis MD 11/11/2024 11:55 AM EDT
--- NOTE | ~2024-11-11 | XR_ITS ---
EXAMINATION: XR KNEE 3 VIEWS RIGHT HISTORY: pain, injury COMPARISON: There are no prior studies available for comparison. FINDINGS: Four views of the right knee are submitted. The bones are osteopenic. There is no fracture or dislocation. The joint spaces are preserved. The soft tissues are unremarkable. There is no joint effusion. XR/XR knee RT 3V IMPRESSION: Osteopenia. No evidence of fracture of the right knee. Electronically signed by: Alexi Landis MD 11/11/2024 11:56 AM EDT
--- NOTE | ~2024-11-11 | XR_ITS ---
EXAMINATION: XR SHOULDER 2 OR MORE VIEWS RIGHT, XR HUMERUS RIGHT HISTORY: pain, injury COMPARISON: There are no prior studies available for comparison. FINDINGS: Three views of the right shoulder and AP and lateral views of the right humerus are submitted. The bones are osteopenic. There is no fracture or dislocation. There is mild degenerative change of the glenohumeral and acromioclavicular joints with joint space narrowing and osteophyte formation. The visualized elbow joint spaces are maintained. The soft tissues are unremarkable. XR/XR shoulder RT min 2V IMPRESSION: Osteopenia. No evidence of fracture of the right shoulder or humerus. Degenerative changes as described. Electronically signed by: Alexi Landis MD 11/11/2024 11:58 AM EDT
--- NOTE | ~2024-11-11 | XR_ITS ---
EXAMINATION: XR SHOULDER 2 OR MORE VIEWS RIGHT, XR HUMERUS RIGHT HISTORY: pain, injury COMPARISON: There are no prior studies available for comparison. FINDINGS: Three views of the right shoulder and AP and lateral views of the right humerus are submitted. The bones are osteopenic. There is no fracture or dislocation. There is mild degenerative change of the glenohumeral and acromioclavicular joints with joint space narrowing and osteophyte formation. The visualized elbow joint spaces are maintained. The soft tissues are unremarkable. XR/XR humerus RT IMPRESSION: Osteopenia. No evidence of fracture of the right shoulder or humerus. Degenerative changes as described. Electronically signed by: Alexi Landis MD 11/11/2024 11:58 AM EDT
[2024-11-11 10:28] VITALS: BP 161/77; PULSE 65; RESP 18; TEMP 36.4; O2SAT 100; BMI 28.2
--- NOTE | 2024-11-11 10:42 | ED_ITS ---
HPI - General Adult General Chief complaint: Fall Stated complaint: trip on carpet, 05/09 R hip pain Time Seen by Provider: 11/11/24 10:42 Source: patient, family (patient's daughter) and EMS Mode of arrival: EMS Limitations: language barrier (Patient declined to have an [facility] drug counselor and requested to have her daughter translate. ) History of Present Illness ED Provider: Radha Ulloa PA-C HPI narrative: 79 year old South African speaking female with PMHx HTN, recently diagnosed H. pylori infection on quad therapy presenting to the ED c/o R shoulder/humerus, hip, and knee pain after a fall. History obtained from both patient and patient's daughter at bedside. Patient reports she was walking and her foot slipped out of her sandal, and she fell forward, flat onto the carpeted floor. Reports she was able to ambulate following the fall, however with significant pain to R hip. Denies head strike, LOC, blood thinners, laceration/bleeding, dizziness, lightheadedness, chest pain, shortness breath, abdominal pain, N/V/D, urinary symptoms, numbness/tingling, recent illness, prior history of falls. Denies alcohol, drug, or cigarette use. Onset (ago): hour(s) Location: pelvis (Right hip), upper extremity (R shoulder/humerus) and lower extremity (R knee) Pain Consistency: constant Associated symptoms: denies other symptoms Related Data Home Medications ?Medication ?Instructions ?Recorded ?Confirmed acetaminophen 325 mg tablet 650 mg PO Q6H PRN pain 02/03/21 atenolol 50 mg tablet 50 mg PO DAILY 02/03/21 cetirizine 10 mg capsule (Zyrtec) 10 mg PO DAILY PRN 02/03/21 chlorthalidone 25 mg tablet 25 mg PO DAILY 02/03/21 triamcinolone acetonide 0.1 % topical BEDTIME 02/03/21 topical ointment Previous Rx's ?Medication ?Instructions ?Recorded cephalexin 500 mg capsule 500 mg PO QID 7 days #28 caps 02/03/21 doxycycline monohydrate 100 mg 100 mg PO BID 7 days #14 caps 02/03/21 capsule ketoconazole 2 % topical cream 1 appl topical BID 4 weeks #60 02/03/21 grams ondansetron HCl 4 mg tablet 4 mg PO Q8H PRN nausea and 10/07/24 vomiting #10 tabs sucralfate 100 mg/mL oral 10 ml PO QID PRN indigestion #200 10/07/24 suspension (Carafate) mL Allergies Allergy/AdvReac Type Severity Reaction Status Date / Time No Known Allergies Allergy Verified 11/11/24 10:33 Review of Systems Constitutional: Constitutional: Reports no additional constitutional complaints, Denies chills, Denies fever(s) and Denies night sweats Eyes: Eyes: Reports no additional eye complaints, Denies blurry vision, Denies change in vision, Denies diplopia, Denies eye discharge, Denies loss of vision and Denies eye pain ENT: Denies dizziness Cardiovascular: Cardiovascular: Reports no additional cardiovascular complaints, Denies chest pain, Denies lightheadedness, Denies Loss of Consciousness and Denies dyspnea Respiratory: Respiratory: Reports no additional respiratory complaints and Denies dyspnea Gastrointestinal: Gastrointestinal: Reports no additional gastrointestinal complaints, Denies abdominal pain, Denies melena, Denies hematochezia, Denies change in bowel habits and Denies change in stool character Genitourinary: Genitourinary: Denies hematuria, Denies urinary frequency, Denies dysuria, Denies urinary incontinence, Denies urinary hesitancy and Denies urinary urgency Musculoskeletal: Musculoskeletal: Reports as per HPI, Denies deformity, Denies numbness and Denies tingling Comments: Reports R shoulder/proximal humerus, hip, knee pain, pain with ambulation Neurologic: Denies dizziness, Denies loss of vision, Denies numbness and Denies tingling Psychiatric: Psychiatric: Reports no additional psychiatric complaints Endocrine: Endocrine: Reports no additional endocrine complaints Hematologic/Lymphatic: Hematologic/Lymphatic: Reports no additional hematologic/lymphatic complaints Allergic/Immunologic: Allergic/Immunologic: Reports no additional allergic/immunologic complaints PMFSH Past Medical History Attestation statement: The following information was validated with the patient. (all information validated with the patient's daughter ) Source: old records reviewed, obtained from family (patient's daughter provided additional history and confirmed the history provided by the patient. ) and nursing notes reviewed Social History Social History Smoked in Last 30 Days: No Use of substances other than those prescribed or required for medical reasons: No Advance Directives: No Advance Directives Information Provided: Yes Do you have a plan to hurt others: No Plan Physical Exam ED Vital Signs: Vital Signs - 24 hr 11/11/24 10:28 Temperature 97.6 F Pulse Rate 65 Respiratory Rate 18 Blood Pressure 161/77 H Pulse Oximetry 100 Oxygen Delivery Method Room Air BMI result Body Mass Index 28.2 Const General: cooperative, no acute distress, alert and awake Nutritional Appearance: well nourished Orientation/consciousness: patient oriented x3 Limitations: language barrier (patient requested that her daughter translate rather than an [facility] interp.) HENMT Head: Yes normal to inspection and Yes atraumatic Ears: hearing grossly normal bilaterally and external ears normal General nose exam: Normal external nose present, no nasal discharge noted and no epistaxis Face and sinus: Yes normal facial exam, No abrasion and No laceration Mouth: Normal oral and palatal mucosa present, no drooling and no muffled voice Eyes General: appearance normal, both eyes and all related structures Periorbital: periorbital findings normal Eyelids: Yes eyelids normal Conjunctivae: conjunctivae normal Pupils: Equal, round and reactive pupils present EOM: EOMs intact bilaterally Neck Neck: Yes normal visual inspection, Yes full ROM and Yes no lymphadenopathy Chest Chest palpation & inspection: normal inspection of the chest Resp Effort & Inspection: normal respiratory effort and able to speak in complete sentences GI Inspection: Yes normal to inspection Back/Spine/Pelvis Back: No back tenderness Cervical Spine: cervical ROM normal, No cervical muscular tenderness and No pain with cervical ROM Neuro General: patient oriented x3, moves all extremities and CN's II-XI intact bilaterally Cranial nerves: Yes Equal, round and reactive pupils present Cognition (Neuro): normal cognition Extrem Other: R knee with small abrasion, mild swelling, no bleeding, ecchymosis, deformity, good ROM. R shoulder with pain radiating to humerus, no obvious deformity, ecchymosis, surgical scar noted, ROM limited likely d/t pain R hip with no obvious deformity, ecchymosis, shortening/rotation, ROM limited likely d/t pain General: Yes capillary refill normal Right upper extremity: shoulder/upper arm Right lower extremity: hip/thigh and knee Psych Appearance: grossly normal Mental Status: mental status grossly normal Affect: normal affect Attitude: cooperative Thought process: Normal thought process present Thought content: Normal thought content present Insight: Good insight present (Psych) Medications Administered Discontinued Medications Generic Name Dose Route Start Last Admin Trade Name Chantel PRN Reason Stop Dose Admin Oxycodone HCl 5 mg 11/11/24 12:08 11/11/24 12:16 Oxycodone Hcl Immed Release 5 Mg Tablet PO 11/11/24 12:09 5 mg ONCE ONE Administration Medical Decision Making Medical Decision Making [facility] Narrative: Patient is a 79 year old assigned female at with a history of HTN, recently diagnosed H. pylori infection on quad therapy, and a right rotator cuff repair presenting to the emergency department today with right shoulder / arm pain, right hip pain, and right knee pain. Patient's physical exam was as noted in the physical exam portion of this note. Patient's right shoulder, humerus, knee, and hip / pelvis x-rays showed no acute process. I explained my physical exam findings as well as all test results to the patient and the patient's daughter. I answered all questions asked by the patient and the patient's daughter. I stressed the importance of the patient taking her medication as directed (either prescribed or as the over the counter packaging recommends). I stressed the importance of the patient following up with her primary care provider. I stressed the importance of the patient returning to the emergency department immediately if her symptoms were to worsen or if she were to develop any dizziness, shortness of breath, difficulty breathing, chest pain, blurry vision, loss of vision, nausea, vomiting, abdominal pain, fever, chills, back pain, or any other complaints. Patient and the patient's daughter verbalized agreement and understanding with this treatment plan and discharge. Differential Diagnosis Differential Diagnoses: The differential diagnosis associated with the presentation includes Contusion Pain Abrasion Fall Admission/Observation Consideration of admission/observation: Escalation of care including admission/observation considered Patient would have been admitted to the hospital had her work up had any findings where hospital admission was appropriate and her clinical presentation warranted hospital admission. Independent Interpretation I performed an independent interpretation of an: Plain X-Ray Interpretation: My interpretation is in agreement with the radiologist's impression of these imaging studies. EXAMINATION: XR SHOULDER 2 OR MORE VIEWS RIGHT, XR HUMERUS RIGHT HISTORY: pain, injury COMPARISON: There are no prior studies available for comparison. FINDINGS: Three views of the right shoulder and AP and lateral views of the right humerus are submitted. The bones are osteopenic. There is no fracture or dislocation. There is mild degenerative change of the glenohumeral and acromioclavicular joints with joint space narrowing and osteophyte formation. The visualized elbow joint spaces are maintained. The soft tissues are unremarkable. XR/XR shoulder RT min 2V IMPRESSION: Osteopenia. No evidence of fracture of the right shoulder or humerus. Degenerative changes as described. Electronically signed by: Alexi Landis MD 11/11/2024 11:58 AM EDT Dictated By: Alexi Landis MD Signed By: Electronically signed by Alexi Landis MD 11/11/24 1158 EXAMINATION: XR KNEE 3 VIEWS RIGHT HISTORY: pain, injury COMPARISON: There are no prior studies available for comparison. FINDINGS: Four views of the right knee are submitted. The bones are osteopenic. There is no fracture or dislocation. The joint spaces are preserved. The soft tissues are unremarkable. There is no joint effusion. XR/XR knee RT 3V IMPRESSION: Osteopenia. No evidence of fracture of the right knee. Electronically signed by: Alexi Landis MD 11/11/2024 11:56 AM EDT Dictated By: Alexi Landis MD Signed By: Electronically signed by Alexi Landis MD 11/11/24 1156 EXAMINATION: XR SHOULDER 2 OR MORE VIEWS RIGHT, XR HUMERUS RIGHT HISTORY: pain, injury COMPARISON: There are no prior studies available for comparison. FINDINGS: Three views of the right shoulder and AP and lateral views of the right humerus are submitted. The bones are osteopenic. There is no fracture or dislocation. There is mild degenerative change of the glenohumeral and acromioclavicular joints with joint space narrowing and osteophyte formation. The visualized elbow joint spaces are maintained. The soft tissues are unremarkable. XR/XR humerus RT IMPRESSION: Osteopenia. No evidence of fracture of the right shoulder or humerus. Degenerative changes as described. Electronically signed by: Alexi Landis MD 11/11/2024 11:58 AM EDT Dictated By: Alexi Landis MD Signed By: Electronically signed by Alexi Landis MD 11/11/24 1158 EXAMINATION: XR HIP 1 VIEW RIGHT WITH PELVIS HISTORY: pain, injury COMPARISON: There are no prior studies for comparison. FINDINGS: A single AP view of the pelvis and two views of the right hip are montero bmitted. The bones are osteopenic. There is no fracture or dislocation. The joint space is maintained. The soft tissues are unremarkable. XR/XR hip RT w PEL1V IMPRESSION: Osteopenia. No evidence of fracture of the right hip. Electronically signed by: Alexi Landis MD 11/11/2024 11:55 AM EDT Dictated By: Alexi Landis MD Signed By: Electronically signed by Alexi Landis MD 11/11/24 1155 Radiology Impression Discussion of test interpretation with radiology: I have reviewed the radiologist's reading. Independent Historian Clinical information obtained from an independent historian. History obtained from or confirmed by: EMS (EMS provided additional history and confirmed the history provided by the patient. ) and Other (Patient's daughter provided additional history and confirmed the history provided by the patient. ) Discharge Plan Discharge Clinical Impression: Fall, Contusion, Abrasion Patient Disposition: Home, Self-Care Instructions: Fall Prevention for Older Adults (ED) Additional Instructions: Follow up with your primary care provider. Return to the emergency department immediately if your symptoms worsen or if you develop any dizziness, shortness of breath, difficulty breathing, chest pain, blurry vision, loss of vision, nausea, vomiting, abdominal pain, fever, chills, back pain, or any other complaints. Bart?seguimiento?con montero m?dico de atenci?n primaria. Acuda inmediatamente al servicio de urgencias si philipp s?ntomas empeoran o si presenta falta de aliento, dificultad para respirar, dolor tor?cico, mareos, aturdimiento, dolor de espalda, dolor abdominal, fiebre, escalofr?os o cualquier otro s?ntoma. Please see the information below about our Patient Portal. If you are not yet enrolled in the [facility] Patient Portal, you will receive an enrollment email invitation following your visit to any [facility] setting. You may also self-enroll in the Patient Portal by visiting our website: [email or web address] The following information is required to access the Patient Portal: - Your [facility] Medical Record Number - Your personal home email address (must match what is in your electronic medical record, Registration staff can assist with this) - Name - Date of Capabilities of the Patient Portal: - Message some providers - View upcoming appointments - Access your health summary, medical history, and visit history - View current conditions and allergies - View procedure and lab results - View your medications, including guidelines, side effects, and precautions - Complete pre-appointment questionnaires requested by your provider - Ready summary reports of your office visits and procedures To access the Patient Portal Mobile Jez, follow these directions: - Search [employer] in the Jez Store or [employer] Store - Download the Jez - Search for [facility] - Enter your login/password Portal del paciente Si usted no esta inscrito en el portal de pacientes de [facility], recibira mango invitacion de inscripcion despues de montero visita al [facility] o al [facility] via correo electronico. Tambien puede inscribirse voluntariamente en el portal de pacientes visitando nuestra pagina web: [email or web address] La siguiente informacion sera requerida para acceder al portal: - Montero javier de historia medica de [facility] - Montero direccion de correo electronico personal - Nombre - Fecha de nacimiento Capacidades: Las siguientes capacidades estan disponibles en el portal de pacientes: - Enviar mensajes a algunos doctores - Verificar proximas citas - Acceso a montero historial de harsh, registro medico e historial de visitas - Amalia las condiciones actuales y alergias amalia procedimientos y resultados del laboratorio - Amalia philipp medicamentos, incluyendo las pautas - Efectos secundarios y precauciones - Completar o llenar formularios / cuestionarios de - Citas solicitadas por montero doctor - Leer los resumenes de reportes medicos de philipp visitas y procedimientos Jessica acceder a la aplicacion movil: - Busque [employer] en la Jez Store o [employer] Store - Descargue la aplicacion - [facility] - Ingrese montero nombre de usuario / Contrasena Prescriptions: No Action sucralfate [Carafate] 100 mg/mL suspension 10 ml PO QID PRN (Reason: indigestion) Qty: 200 0RF Rx Instructions: swish in mouth and swallow; use after food/drink ondansetron HCl 4 mg tablet 4 mg PO Q8H PRN (Reason: nausea and vomiting) Qty: 10 0RF cephalexin 500 mg capsule 500 mg PO QID 7 Days Qty: 28 0RF doxycycline monohydrate 100 mg capsule 100 mg PO BID 7 Days Qty: 14 0RF ketoconazole 2 % cream 1 appl topical BID 28 Days Qty: 60 0RF Referrals: Alma Delia Segura MD [Primary Care Provider] - Interventions: ED Discharge Assessment Last Done: 11/11/24 12:19 Print Language: South African
[2024-11-11] MEDS: oxyCODONE HCl Immed Release 5 MG TABLET PO (12:16)
[2024-11-11 12:19] VITALS: BP 161/77; PULSE 65; RESP 18; TEMP 36.4; O2SAT 100
--- OUTSIDE RECORDS SUMMARY | 2024-11-11 13:15 | XMS_ITS | Clinical Summary ---
Author Organization [facility], Address [address] [place] [address] [place] [address] Phone Care Team Providers Care Home Health Specialist Name Role Phone Bibiana Stover MD Primary Care Provider [phone] Allergies Active Allergy Reactions Criticality Noted Date [...] by mouth 09/04/2020 Active ergocalciferol 1.25 MG (12199 UT) capsule Take 50,000 Units by mouth [...] kidney disease stage 3 07/13/2017 09/27/2021 Immunizations Immunization Administration Dates Next Due Influenza Split High [...] Visit [facility], [address] [place] [address] Jordy Valdez MD [address] [place] [address] Health Maintenance Due Date Last Done Comments Pneumococcal Vaccine: 50+ Years (2 of 2 - PCV) 08/30/2018 08/30/2017 Influenza Vaccine (Season Ended) 2025 05/04/2023, 04/15/2022, 06/30/2021, Additional history exists Hepatitis B Vaccine Aged Out No longe r eligible based on patient's age to complete this topic Insurance [facility] [employer] Dual SNP ([id number]) [place] [phone] Care Teams Home Health Specialist Relationship Specialty Start Date End Date Bibiana Stover MD [address] [place] [address] PCP - General Internal Medicine 01/20/21
--- OUTSIDE RECORDS SUMMARY | 2024-11-11 13:15 | XMS_ITS | Clinical Summary ---
Author Organization [facility] Address [address] [place] [address] Care Team Providers Care Tick Inspector Name Role Phone Joshua Orosco MD Primary Care Provider [phone] Allergies Active Allergy Reactions Criticality Noted Date [...] age to complete this topic Care Teams Tick Inspector Relationship Specialty Start Date End Date Joshua Orosco MD PCP - General Poultry Hatchery Supervisor 06/12/18
--- OUTSIDE RECORDS SUMMARY | 2024-11-11 13:15 | XMS_ITS | Clinical Summary ---
Author Organization [facility] [address] [place] [address] [place] [phone] Phone Care Team Providers Care Salvage Inspector Wood Parts Name Role Phone Alma Delia Drew MD Primary Care Prov ider Allergies Active Allergy Reactions Criticality Noted Date Comments Levonorgestrel-Ethinyl Estrad 2017 Other 10/11/2017 Seasonal Medications chlorthalidone (HYGROTON) 25 mg tablet TAKE 1 TABLET BY MOUTH DAILY 90 tablet 1 024 Active acetaminophen (TYLENOL) 500 mg tablet Take 1 tablet (500 mg total) by mouth. 018 Active cetirizine (ZyrTEC) 10 mg tablet Take 1 tablet (10 mg total) by mouth 1 (one) time each day. Active diclofenac sodium 3 % gel Apply 1 Dose topically. 023 Active lidocaine (XYLOCAINE) 5 % ointment Apply 1 Tube topically 2 (two) times a day. 022 Active camphor-methyl salicyl-menthoL 3.1-15-10 % gel Apply 1 Tube topically. 022 Active amLODIPine (NORVASC) 2.5 mg tablet TAKE 1 TABLET BY MOUTH DAILY 90 tablet 1 024 Active multivitamin (MULTIPLE VITAMINS ORAL) Take by mouth. Active triamcinolone (KENALOG) 0.1 % ointment APPLY A PEA SIZED AMOUNT MONDAY, MONDAY, AND MONDAY NIGHTS 30 g Active ondansetron (ZOFRAN) 4 mg tablet Take 1 tablet (4 mg total) by mouth every 8 (eight) hours if needed for nausea. Active atenoloL (TENORMIN) 50 mg tablet Take 1 tablet (50 mg total) by mouth 1 (one) time each day. 90 tablet Active atorvastatin (LIPITOR) 20 mg tablet Take 1 tablet (20 mg total) by mouth 1 (one) time each day. 90 each 3 025 2025 Active cholecalciferol (VITAMIN D-3) 50 mcg (2,000 unit) capsule Take 2 capsules (4,000 Units total) by mouth 1 (one) time each day. 180 each 2025 Active omeprazole OTC (PriLOSEC OTC) 20 mg EC tablet Take 1 tablet (20 mg total) by mouth 2 (two) times a day for 14 days. Do not crush, chew, or split. 28 tablet 2024 Active bismuth subsalicylate (Pepto-BismoL) 262 mg chewable tablet Chew 2 tablets (524 mg total) 4 (four) times a day (before meals and nightly) for 14 days. 112 each 2024 Active tetracycline (ACHROMYCIN,SUMYCIN ) 500 mg capsule Take 1 capsule (500 mg total) by mouth 4 (four) times a day for 14 days. 56 capsule 2024 Active metroNIDAZOLE (FLAGYL) 500 mg tablet Take 1 tablet (500 mg total) by mouth 3 (three) times a day for 14 days. Do not use mouth wash or consume alcohol until 48 hours after last dose 42 each 2024 Active amoxicillin (AMOXIL) 500 mg tabletIndications:H . pylori gastrointestinal tract infection Take 2 tablets (1,000 mg total) by mouth 2 (two) times a day for 14 days. 56 tablet 025 2024 Active omeprazole (PriLOSEC) [address] capsule Take 1 capsule (40 mg total) by mouth 2 (two) times a day for 14 days. Do not crush or chew. 28 each 025 2024 Active atorvastatin (LIPITOR) 20 mg tablet Take 1 tablet (20 mg total) by mouth daily. 022 2024 Discontinued(R eorder) cholecalciferol (VITAMIN D-3) 50 mcg (2,000 unit) capsule Take 2 capsules (4,000 Units total) by mouth 1 (one) time each day. 024 2024 Discontinued(R eorder) atenoloL (TENORMIN) 50 mg tablet TAKE 1 TABLET BY MOUTH DAILY 90 tablet 025 2024 Discontinued(R eorder) omeprazole OTC (PriLOSEC OTC) 20 mg EC tablet Take 1 tablet (20 mg total) by mouth 1 (one) time each day. Do not crush, chew, or split. 90 tablet 025 2024 Discontinued Active Problems Problem Noted Date Diagnosed Date [...] of medication to use. She will restart [facility] triamcinolone ointment. Sebaceous cyst 04/14/2020 Overview (06/10/2024): [...] kidney disease) stage 3, GFR 30-59 ml/min ([facility] V24, [facility] V28) 07/13/2017 Overview (06/10/2024): Dr. Valdez Allergic rhinitis [...] to be 09/2016, biopsy of left benign Encounters Date Type Department Care Team Description 11/05/2024 2:20 PM EDT Consult Gastroenterology - [place] [address] [place] [address] Radha San PA H. pylori infection (Primary Dx); Gastritis without bleeding, unspecified chronicity, unspecified gastritis type; Dyspepsia; History of colon polyps 10/29/2024 Telephone Adult Medicine [address] [phone] Alma Delia Peterson MD Medication Problem 10/24/2024 10:00 AM EDT Office Visit Adult Medicine [address] [phone] Alma Delia Peterson MD Gastritis without bleeding, unspecified chronicity, unspecified gastritis type (Primary Dx); Epigastric pain 10/24/2024 Telephone Adult Medicine [address] [phone] Alma Delia Peterson MD Forms/questionnaires ([facility]) 10/14/2024 Telephone Adult Medicine [address] [phone] Alma Delia Peterson MD er follow-up from Last 3 Months Immunizations Name Administration Dates Next Due Influenza [...] kidney disease) stage 3, GFR 30-59 ml/min (CMS/HCC V24, CMS/HCC V28) 07/13/2017 DX:CKD (chronic kidney disea se) stage 3, GFR 30-59 ml/min ([facility]) Abnormal mammogram 06/30/2016 DX:Abnormal m ammogram; COMMENT: [...] Date Smoking Tobacco: Never Smokeless Tobacco: Never Tobacco Cessation:Counseling Given: Not Answered Alcohol Use Standard Drinks/Week Comments Not Currently 0 (1 standard drink = 0.6 oz pur e alcohol) Comments No Sex and Gender Information Value Date Recorded Sex Assigned at Not on file Legal Sex Female 11:39 AM EST Gender Identity Not on file Sexual Orientation Not on file Obstetrics History Last Filed Vital Signs Vital Sign Reading Time Taken Comments Blood Pressure 137/80 11/05/2024 2:37 PM EDT Pulse 62 10/24/2024 9:55 AM EDT Temperature 36.2 ??C (97.1 ??F) 10/24/2024 9:55 AM ED T Respiratory Rate 14 10/24/2024 9:55 AM EDT Oxygen Saturation - - Inhaled Oxygen Concentration - - Weight 67.1 kg (148 lb) 11/05/2024 2:37 PM EDT Height 154.9 cm (5' 1 ) 11/05/2024 2:37 PM EDT Body Mass Index 27.96 11/05/2024 2:37 PM EDT Plan of Treatment Upcoming Encounters Date Type Department Care Team (Late st Contact Info) Description 02/11/2025 2:20 PM EDT Office Visit Gastroenterology - [place] [address] [facility] [address] [facility] [address] [place] [address] Radha San PA [address] [place] [address] 02/24/2025 1:00 PM EDT Office Visit Adult Medicine [address] [phone] Alma Delia Drew MD [address] [place] [address] Health Maintenance Due Date Last Done Comments Zoster Vaccines (1 of 2) 1964 Pneumococcal Vaccine: 50+ Years (2 of 2 - PCV) 08/30/2018 08/30/2017 COVID-19 Vaccine (3 - Pfizer risk series) 01/21/2021 12/24/2020, 12/03/2020 RSV Immunization Adult Patients (1 - 1-dose 75+ series) 2021 Hepatitis C Screening 07/09/2022 Medicare Annual Wellness Visit 07/09/2022 Social Influencers of Health Screening 07/09/2022 Influenza Vaccine (Season Ended) 2025 05/04/2023, 04/15/2022, 06/30/2021, Additional history exists Hypertension/CHF/CAD Annual [...] age to complete this topic Meningococcal B Vaccine Aged Out No l onger eligible based on patient's age to complete this topic RSV Immunization Patients Under 20 months Aged Out No longer eligible based on patient's age to complete this topic Varicella Vaccines Aged Out No longer eligible based on patient's age to complete this topic Procedures Procedure Name Priority Date/Time Associated Diagnosis Comments HELICOBACTER PYLORI ANTIGEN, STOOL Routine 10/25/2024 12:23 PM EDT Gastritis without bleeding, unspecified chronicity, unspecified gastritis type DEPRESSION SCREENING Routine 05/06/2024 FALLS RISK ASSESSMENT Routine 05/06/2024 ANNUAL BMP BLOOD TEST Routine 04/03/2024 LIPID PANEL Routine 04/03/2024 DXA BONE DENSITY STUDY 1+ SITS AXIAL SKEL Routine 12/27/2018 1:43 PM EDT Encounter for screening for osteoporosis from Last 3 Months or Most Recently Relevant to Health Maintenance Results * (ABNORMAL) Helicobacter pylori antigen, stool (10/25/2024 12:23 PM EDT) Helicobacter Pylori Ag DETECTED( A) Not detected 10/29/2024 2:[address] [facility] Comment: This test was performed at [facility] using a chemiluminescent immunoassay intended for the qualitative determination of helicobacter pylori (H. pylori) antigen in human stool. The test is an aid in the diagnosis of patients suspected of H. pylori infection and to measure post therapy response from patients. Assay results should be used in conjunction with other clinical and laboratory data to assist the clinician in making individual patient management decisions. A negative test result does not preclude the possibility of the presence of H. pylori antigen in the specimen, which may occur if the level of antigen is below the detection limit of the test. Antimicrobials, proton pump inhibitors, and bismuth preparations are known to suppress H. pylori and, if ingested, may give a false negative result. In these cases a new fecal sample should be collected and tested 14 days after treatment has stopped. Positive results from patients that have used antibiotics, PPIs, or bismuth compounds in the 14 days prior to fecal sample collection are still considered accurate. This assay has not been evaluated in a pediatric population. This test has been approved as an in vitro diagnostic by the US Food and Drug Administration. Test performed at [facility], [address] [place], [place] ??[address] ? [phone] Milagros Cruz MD, PhD - Land Law Examiner Stool Rectum structure / Unknown Non-blood Collection / Unknown 10/25/2024 12:23 PM EDT 10/25/2024 12:23 PM EDT us Alma Delia Drew MD LAB BODY FLUIDS AN D STOOLS ORDERABLES Final Result [facility] [address] [place] [address] * Falls Risk Assessment (05/06/2024) [facility] Falls Risk Assessment abstracted [facility] Provider MD HEALTH MAINTENANCE Final Result * Depression Screening (05/06/2024) [facility] Depression Screening abstracted [facility] Provider GA HEALTH MAINTENANCE Final Result * Annual BMP Blood Test (04/03/2024) [facility] Annual BMP Blood Test abstracted Result [facility] Provider GA HEALTH MAINTENANCE Final Result * Lipid panel (04/03/2024) [facility] LDL/HDL Ratio 0 Triglycerides 0 mg/dL Cholesterol 0 mg/dL HDL 0 mg/dL LDL Cholesterol 0 mg/dL Blood Venous blood specimen / Unknown Result [facility] BLOOD ORDERABLES Kyleigh l Result * [...] (World Health Organization Fracture Risk Assessment) [facility] Department of Internal Medicine recommends using National [...] (World Health Organization Fracture Risk Assessment) [facility] Department of Internal Medicine recommendsusing National Osteoporosis [...] Most Recently Relevant to Health Maintenance Insurance [facility] MEDICARE Member Subscriber Plan / Payer (Ef fective 2020-Present) Name:Haja Cole Relation to Subscriber:Self Name:Haja Cole Payer ID:[id number] Group ID:[id number] Type:Not on file Address: [address] [facility] [place] [address] Care Teams Salvage Inspector Wood [employer] Relationship Specialty Start Date End Date Alma Delia Drew MD [address] [place] [address] [phone] PCP - General Internal Medicine 06/20/24
--- OUTSIDE RECORDS SUMMARY | 2024-11-11 13:16 | XMS_ITS ---
Author Organization [facility] Address [address] [place] [address] Care Team Providers Care Programmer Engineering And Scientific Name Role Phone Alma Delia Hayward Primary Care Provider Unava ilKaye Austin [facility] [phone] Encounters Encounter Location Date Provider Diagnosis [facility] [address] [place] [address] 06/20/2024 Kaye Colon Plan Of Treatment No Information Progress Notes * Jay OSMANPedritoOB:1945 (79 yo F)Acc No.[id number]:06/20/2024 Progress Notes Patient:Haja MCNAIR Provider:?Kaye Colon DPM :1945???Age:79 Y???Sex:Female D ate:06/20/2024 Address:[address] [place], [place] [id number] Pcp:Alma Delia Hayward Subjective: * Chief Complaints: [...] DPM Date:?1 08/20/2023 Generated for Johny yang/Paul/eTransmitting on:?11/11/2024 01:15 PM EDT
--- OUTSIDE RECORDS SUMMARY | 2024-11-11 13:16 | XMS_ITS ---
Author Organization [facility] Address [address] [place] [address] Care Team Providers Care Personnel Associate Name Role Phone Alma Delia Hayward Primary Care Provider Kaye Medellin Unavailable [phone] Allergies No Known Allergies REASON FOR VISIT [...] Ordered Date Performed Result Body Sit e [id number]-[id number] SKIN/TISSUE 06/26/2024 N/A Encounters Encounter Location Date Provider Diagnosis [facility] [place] [address] [place] [address] 06/26/2024 Kaye Colon Skin ulcer of toe [...] INSTRUCTIONS.pdf) Pending Test Test Name Order Date [id number] SKIN/TISSUE 06/26/2024 Next Appt Details Follow Up: prn, Reason: Progress Notes * Jay OSMANPedritoOB:1945 (79 yo F)Acc No.[id number]:06/26/2024 Progress Notes Patient:?Haja OSMAN Provider:?Kaye Colon DPM :1945???Age:79 Y???Sex:Female D ate:06/26/2024 Address:[address] [place], [place] [address] , [place] Pcp:Alma Delia Hayward Subjective: * Chief Complaints: [...] Colon DPM Date:?08/26/2023 Generated for Johny yang/Paul/Len on:?11/11/2024 01:15 PM EDT History and Physical Notes * HPI (History of Present Illness) Category Sub-Category Detail Notes Category Not es Skin problems Nature: Open sore Treatments: Topical abx, soaks Examination Category Sub-Category Detail Notes Category Not es Dermatologic ULCER: LOCATION, Dorsal , TA has completely epithelialized, no surrounding erythema or edema appreciated
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
--- OUTSIDE RECORDS SUMMARY | 2024-11-11 13:16 | XMS_ITS | Patient Health Record ---
Author [facility] Address [address] [place] [address] Care Team Providers Care Cycle Touring Guide Name Role Phone Alma Delia Hayward Primary Care Provider Kaye Medellin Unavailable [phone] Storm Holland Unavailable [phone] Allergies No Known Allergies Reason For Referral No Information Medications Medication SIG (Take, Route, Frequency, Duration) Notes Start Date End Date Status Vitamin D3 50 MCG (1999) 1 capsule Or ally Once a day Active ZyrTEC 10 MG 1 tablet Orally Once a day Active Chlorthalidone 25 MG 1 tablet in the mor zoey with food Orally Active Atenolol 50 MG 1 tablet Orally Once a day Active amLODIPine Besylate 2.5 MG 1 tablet Oral ly Once a day Active Tylenol Extra Strength 500 MG 1 tablet as needed Orally every 6 hrs 06/12/2024 Active Social History Tobacco Use: Social History [...] Notes Problem Skin ulcer of toe of right foot with fat layer exposed (L97.512) Active confirmed Problem Skin ulcer of toe of left foot with fat layer exposed (L97.522) Active confirmed Vital Signs Height 5 ft 4 in in 06/26/2024 Weight 154 lbs 06/26/2024 BMI 26.43 kg/m2 06/26/2024 Procedures Procedure Date Ordered Date Performed Result Body Sit e 19526-Sqfcwzgf Plate 06/12/2024 N/A 85593-Kbvo. Subungual Hematoma 06/12/2024 N/A [id number] SKIN/TISSUE 06/26/2024 N/A Encounters Encounter Location Date Provider Diagnosis [facility] [address] 06/12/2024 Kaye Colon Tinea unguium B35.1 ; Subungual hematoma of right foot, initial encounter S90.221A and Toe pain, left M79.[address] [facility] [address] 06/26/2024 Kaye Hassanaker Skin ulcer of toe of left foot with fat layer exposed L97.522 ; Tinea unguium B35.1 and Toe pain, left M79.[address] [address] 06/13/2024 Kaye Colon Assessments Encounter Date Diagnosis (ICD Code) Assessment Notes Treatment Notes Treatment Clinical Notes Section Notes 06/12/2024 Tinea unguium (ICD-10 - B35.1) 06/26/2024 Tinea unguium (ICD-10 - B35.1) 06/26/2024 Skin ulcer of toe of left foot with fat layer exposed (ICD-10 - L97.522) Patient Educated with: WOUND CARE INSTRUCTIONS.p df (WOUND CARE INSTRUCTIONS.p df) 06/26/2024 Toe pain, left (ICD-10 - M79.675) 06/12/2024 Toe pain, left (ICD-10 - M79.675) 06/12/2024 Subungual hematoma of right foot, initial encounter (ICD-10 - S90.221A) 06/26/2024 Other Patient Educated with: WOUND CARE INSTRUCTIONS.p df (WOUND CARE INSTRUCTIONS.p df) Plan Of Treatment Pending Test Test Name Order Date 80130-Tyqjuhnu Plate 06/12/2024 [id number] SKIN/TISSUE 06/26/2024 18981-Tsds. Subungual Hematoma 4 Insurance Providers Payer Name Payer Address Payer Phone Subscriber Number Group Number Insured Name Patient Relationship to Insured Coverage Start Date Coverage End Date [facility] [employer] Claims [address] [place] [id number] Haja Cole Self - patient is the insured Medical (General) History Medical History History ICD Code High Blood Pressure Kidney disease Joint implants/screws Surgical History Surgery Date(Month/Year) shoulder surgery 2020 rotator cuff 2000
--- OUTSIDE RECORDS SUMMARY | 2024-11-11 13:16 | XMS_ITS ---
Author Organization [facility] Address [address] [place] [address] Care Team Providers Care Test Borer Helper Name Role Phone Alma Delia Hayward Primary Care Provider UnaKaye Cantu Unavailable [phone] Storm Holland Unavailable [phone] REASON FOR VISIT Seen Sooner Encounters Encounter Location Date Provider [facility] [address] [facility] [address] [place] [address] 06/26/2024 Storm Holland Plan Of Treatment No Information Progress Notes * Benito OSMANOB:1945 (79 yo F)Acc No.[id number]:06/26/2024 Progress Notes Patient:?Haja OSMAN Provider:?Storm Holland DPM :1945???Age:79 Y???Sex:Female D ate:06/26/2024 Address:[address] [place] [address] [place] Pcp:Alma Delia Hayward Subjective: * Chief Complaints: [...] Holland DPM Date:?2023 Generated for Johny yang/Paul/Len on:?11/11/2024 01:15 PM EDT
== END 2024-11-11 12:20 | disposition home or self-care (01) ==
PROVIDERS: Emergency Provider Emergency Medicine; PCP Internal Medicine
DX: S70.01XA Contusion of right hip, initial encounter (principal); M85.861 Other specified disorders of bone density and structure, right lower leg; M25.561 Pain in right knee; M25.511 Pain in right shoulder; M25.551 Pain in right hip; W01.0XXA Fall on same level from slipping, tripping and stumbling without subsequent striking against object, initial encounter; Y93.9 Activity, unspecified; Y92.9 Unspecified place or not applicable; Y99.8 Other external cause status; Z79.899 Other long term (current) drug therapy
CPT/HCPCS: 73030; 73060; 73502; 73562; 99283; 99284

== ENCOUNTER → 2024-11-11 11:06 | Outpatient (BNV) | payer OTHER, SELFPAY | PROVIDERS: Emergency Provider Emergency Medicine; PCP Internal Medicine; Visit Provider Radiology Diagnostic Radiology | DX: M25.551 Pain in right hip (principal); M25.511 Pain in right shoulder; M25.561 Pain in right knee; M79.621 Pain in right upper arm; M85.80 Other specified disorders of bone density and structure, unspecified site; W01.0XXA Fall on same level from slipping, tripping and stumbling without subsequent striking against object, initial encounter | CPT/HCPCS: 73030; 73060; 73502; 73562 ==